=== PATIENT | female | born 1980 | race Caucasian/White ===

== ENCOUNTER 2023-03-18 13:19 | Inpatient (IN) | payer OTHER, MEDICAID, SELFPAY ==
[2023-03-18] VITALS (52 sets, daily range): BP systolic 105–154; BP diastolic 41–73; PULSE 56–787; RESP 11–30; TEMP 36.1–37.3; O2SAT 98–100; BMI 44.8
--- NOTE | 2023-03-18 | PATH_ITS ---
[facility] Accession Number: [id number] No. of containers..01 Tissue . 01 Material submitted: . endometrium - ENDOMETRIAL CURETTINGS . 01 Diagnosis: Endometrium, Curettage: Secretory endometrium with extensive breakdown. Negative for neoplasia. MRV 03/27/2023 1535 Local . 01 Electronically signed: . Kellie López MD, Pathologist NPI- [id number] . 01 Gross description: . ENDOMETRIAL CURETTINGS: Received in formalin are minute fragments of mucoid and hemorrhagic material measuring 5.0 x 4.0 x 0.3 cm in aggregate. Submitted in toto in 2 cassettes. /AAY 03/20/2023 0148 Local . 01 Pathologist provided ICD-10: N94.9 . 01 CPT . 041005 Specimen Comment: A courtesy copy of this report has been sent to [facility] Performed at: 01 [facility] [address] [place] [address], [place], [place] [id number] MD Eusebio Delgado MD Phone: [phone]
--- NOTE | 2023-03-18 14:06 | DI.CT.S_ITS ---
PROCEDURE: CT ABDOMEN PELVIS W CON INDICATIONS: Abdominal pain radiating from right lower back TECHNIQUE: After the administration of intravenous contrast, axial sections acquired from the lung bases to the pubic symphysis. Coronal and sagittal reformats were performed. For radiation dose reduction, the following was used: automated exposure control, adjustment of mA and/or kV according to patient size. COMPARISON: None. FINDINGS: Lower thorax: The lung bases are clear. Heart size normal. No hiatal hernia. Liver: Normal in size and attenuation. No contour deformity present. Biliary system: Cholecystectomy. No intra or extrahepatic bile duct dilation. Pancreas: Unremarkable without mass or inflammation evident. Spleen: The spleen is enlarged at 14 cm. No intrinsic mass lesion. Adrenals: Normal morphology and density. Reproductive system: Uterus is enlarged measuring 15.1 x 11.1 x 11.5 cm, in the endometrial and endocervical canal is distended with heterogenous fluid, likely hemorrhage . Bilateral fallopian tube occlusion devices noted. No free fluid in the pelvis. Urinary system: Normal renal size and attenuation. No renal calculi, hydronephrosis, or solid mass present. Urinary bladder unremarkable. Gastrointestinal system: The bowel is unremarkable without evidence of bowel obstruction or inflammation. The stomach appears unremarkable. Appendix: No findings to suggest acute appendicitis. Peritoneal spaces: No mesenteric or retroperitoneal adenopathy. No free air. No free fluid. Vasculature: The IVC, aorta and iliac vasculature are unremarkable. Abdominal wall: Abdominal wall intact without evidence of ventral or inguinal hernias. Musculoskeletal: Normal bone mineralization. No acute fractures. IMPRESSION: 1. Uterine enlargement and large volume endometrial and endocervical heterogenous fluid, possibly hemorrhage. Consider ultrasound correlation to assess vascularity and [employer] consult. 2. Splenomegaly, 14 cm Approved by: Ankush Mendez M.D. on 03/18/2023 at 14:19
--- NOTE | 2023-03-18 14:10 | ED.ABDPAIN ---
HPI - Abdominal Pain <BETTY Browne - Last Filed: 03/18/23 16:31> General Chief Complaint: Abdominal Pain Stated Complaint: abd pain/lower back to the front Time Seen by Provider: 03/18/23 13:45 Source: patient Mode of arrival: Ambulatory History of Present Illness HPI narrative: 42-year-old female, former smoker with a history of epiploic appendagitis, presents to the emergency department with worsening right lower back pain radiating to abdomen, upper abdominal pain with nausea, vomiting and diarrhea (loose) x2 days. Patient denies any blood or unusual consistency of vomitus or stool. Patient is currently on her menses. Patient states that she had similar symptoms last month during her menstrual cycle, that lasted for 5 days. Patient states that she is been having these worsening symptoms during her menses over the last 4 months. Patient is concerned because this pain feels different from previous months. History of cholecystectomy and BTL. Patient did attempt to eat at 7:00 a.m. and 10:00 a.m. today, but vomited everything up. Sipping water caused her to be nauseous as well. Patient states that the only position she is been in that alleviates her pain is in a high Martinez's position. Related Data Home Medications Medication Instructions Recorded Confirmed acetaminophen 500 mg tablet 1,000 mg PO Q6H PRN 07/18/22 07/18/22 (Tylenol Extra Strength) Allergies Allergy/AdvReac Type Severity Reaction Status Date / Time beeswax Allergy Intermediate Affects Verified 03/18/23 13:33 Breathing grapefruit Allergy Intermediate Rash Verified 03/18/23 13:33 honey Allergy Intermediate Affects Verified 03/18/23 13:33 Breathing pineapple Allergy Intermediate Rash Verified 03/18/23 13:33 Review of Systems <BETTY Browne - Last Filed: 03/18/23 16:31> Review of Systems Narrative: Narrative: See HPI. GENERAL: Denies chills, fatigue, fever, sweats. HEENT: Denies sinus pain, ear pain, sore throat, difficulty swallowing, dizziness. RESPIRATORY: Denies dyspnea, cough, wheezing, sputum. CARDIOVASCULAR: Denies chest pain, palpitations, edema. GASTROINTESTINAL: Denies constipation. Endorses nausea, vomiting, diarrhea and abdominal pain. : Denies dysuria, incontinence, hematuria, urinary retention. Endorses urinary frequency and right lower back pain. MSK: Denies weakness, joint pain, or bony pain. SKIN: Denies rash, skin lesions, or pruritis. NEUROLOGIC: Denies weakness, dizziness, headache, numbness, confusion. PSYCHIATRIC: No concerning psychosocial issues. Patient History <BETTY Browne - Last Filed: 03/18/23 16:31> Medical History Vision disorder Acne Depression Anxiety Restless leg syndrome Migraines Headache Shoulder pain Foot pain Chronic back pain Ankle pain Chicken pox Blindness Painful menstrual periods Heavy menstrual period Epiploic appendagitis (~2016) Tetrahydrocannabinol (THC) use disorder, mild, abuse MADDI (generalized anxiety disorder) Vision loss Cataract Surgical History Anesthesia History of section History of cholecystectomy (~2006) Family History Father Cataracts, bilateral Mother Glaucoma Grandfather Cancer Social History household members: friend(s) Smoking Status: Former smoker Tobacco: How many years used: 13 alcohol intake: current substance use type: marijuana (current, anxiety ) Smoking Status: Former smoker alcohol intake frequency: holidays/special occasions only Substance Use Type: marijuana Exam <BETTY Browne - Last Filed: 03/18/23 16:31> Narrative Exam Narrative: Exam Narrative: GENERAL: This is a well-nourished, well-developed patient, in mild distress. HEAD: Atraumatic. Normocephalic. EYES: Pupils equal round and reactive. Extraocular motions intact. No scleral icterus, injection or drainage. ENT: Nose without bleeding, purulent drainage. Throat without erythema, tonsillar hypertrophy or exudate. Uvula midline. Airway patent. TMs and canals clear. No sinus tenderness. NECK: Trachea midline. No JVD or lymphadenopathy. Nontender. CARDIOVASCULAR: Regular rate and rhythm with systolic murmur, peripheral pulses intact, cap refill <2 sec. RESPIRATORY: Breath sounds equal and clear bilaterally. No wheezes, rales, or rhonchi. No cough. No increased respiratory effort. No accessory muscle use. GASTROINTESTINAL: Abdomen soft, with generalized discomfort (worse in upper quadrants), nondistended without guarding or rebound. No suprapubic pain. MSK: Moves all extremities. Normal range of motion, no clubbing or edema. Neurovascularly intact. NEURO: A&O x 3. SKIN: Warm, dry, no rashes or lesions noted. Initial Vital Signs Initial Vital Signs: Vital Signs Temperature 97.6 F 03/18/23 13:24 Pulse Rate 82 03/18/23 13:24 Respiratory Rate 20 03/18/23 13:24 Blood Pressure 151/67 H 03/18/23 13:24 Pulse Oximetry 100 03/18/23 13:24 Oxygen Delivery Method Room Air 03/18/23 13:24 Reviewed <Hallie Guillen DO - Last Filed: 03/18/23 18:17> Initial Vital Signs Initial Vital Signs: Vital Signs Temperature 97.6 F 03/18/23 13:24 Pulse Rate 82 03/18/23 13:24 Respiratory Rate 20 03/18/23 13:24 Blood Pressure 151/67 H 03/18/23 13:24 Pulse Oximetry 100 03/18/23 13:24 Oxygen Delivery Method Room Air 03/18/23 13:24 Course <BETTY Browne - Last Filed: 03/18/23 16:31> Orders Ordered: ED Orders 03/18/23 13:50 Complete Blood Count AUTO DIFF Stat Comprehensive Metabolic Panel Stat Iron Profile (w/ % Saturation) Stat Lipase Stat 03/18/23 14:06 CT abdomen pelvis w con Stat 03/18/23 14:10 Urinalysis and Microscopic Stat Urine Culture Stat 03/18/23 14:30 Covid-19 + FLU A/B + RSV - PCR Stat 03/18/23 14:50 Ammonia (NH3) Stat 03/18/23 14:56 Packed Cells Stat Type and Screen Stat Fentanyl (Fentanyl 100 Mcg/2 Ml Inj) 0 mcg IV Q5MIN PRN PRN Reason: Pain, Severe (7-10) Last Admin: 03/18/23 17:48 Dose: 25 mcg Documented By: CG Hydromorphone HCl (Hydromorphone 1 Mg Inj) 0 mg IV Q5MIN PRN PRN Reason: Pain, Mild (1-3) Hydroxyzine HCl (Hydroxyzine 50 Mg/Ml Inj) 25 mg IM NOW PRN PRN Reason: Pain, Mild (1-3) Lactated Ringer's (Lactated Ringers) 1,000 mls @ 42 mls/hr IV CONT BYRON Last Infusion: 03/18/23 17:53 Dose: Infused Documented By: Admin: 03/18/23 17:53 Dose: 42 mls/hr Documented By: MARY Cefazolin Sodium/Dextrose (Ancef) 100 mls @ 200 mls/hr IV NOW ONE Stop: 03/18/23 17:38 Last Infusion: 03/18/23 17:02 Dose: Infused Documented By: Admin: 03/18/23 16:45 Dose: 200 mls/hr Documented By: MICHAEL Lactated Ringer's (Lactated Ringers) 1,000 mls @ 120 mls/hr IV CONT BYRON Ondansetron HCl (Ondansetron 4 Mg/2 Ml Inj) 4 mg IV NOW PRN PRN Reason: Nausea And Vomiting Last Admin: 03/18/23 17:48 Dose: 4 mg Documented By: MARY Discontinued Medications Sodium Chloride (Normal Saline 0.9%) 1,000 mls @ 1,000 mls/hr IV BOLUS ONE Stop: 03/18/23 15:02 Last Infusion: 03/18/23 15:57 Dose: Infused Documented By: Admin: 03/18/23 14:32 Dose: 1,000 mls/hr Documented By: SARAI Tranexamic Acid 1,000 mg/ (Sodium Chloride) 100 mls @ 200 mls/hr IV NOW ONE Stop: 03/18/23 16:37 Last Admin: 03/18/23 16:36 Dose: Not Given Documented By: SARAI Ketorolac Tromethamine (Ketorolac 30 Mg/Ml Vial) 30 mg IV NOW ONE Stop: 03/18/23 14:10 Last Admin: 03/18/23 14:26 Dose: 30 mg Documented By: SARAI Ondansetron HCl (Ondansetron 4 Mg/2 Ml Inj) 4 mg IV NOW ONE Stop: 03/18/23 14:04 Last Admin: 03/18/23 14:26 Dose: 4 mg Documented By: SARAI Consultations Consultation #1: Dr. Shah, OBGYN, was contacted and presented to the bedside for evaluation. Patient will be taking patient to operating room for D&C. Vital Signs Vital signs: Vital Signs - 8 hr 03/18/23 13:24 03/18/23 13:40 03/18/23 13:41 Temperature 97.6 F Pulse Rate 82 79 77 Respiratory Rate 20 Blood Pressure 151/67 H Pulse Oximetry 100 99 100 Oxygen Delivery Method Room Air 03/18/23 13:41 03/18/23 14:00 03/18/23 14:00 Temperature Pulse Rate 87 Respiratory Rate Blood Pressure 151/65 H 141/64 H Pulse Oximetry 99 Oxygen Delivery Method 03/18/23 14:12 03/18/23 14:12 03/18/23 14:30 Temperature Pulse Rate 81 78 Respiratory Rate Blood Pressure 153/67 H Pulse Oximetry 100 99 Oxygen Delivery Method 03/18/23 14:59 03/18/23 14:59 03/18/23 15:00 Temperature Pulse Rate 84 80 Respiratory Rate Blood Pressure 133/58 L Pulse Oximetry 100 100 Oxygen Delivery Method 03/18/23 15:01 03/18/23 15:01 03/18/23 15:05 Temperature Pulse Rate 78 Respiratory Rate Blood Pressure 127/60 126/58 L Pulse Oximetry 100 Oxygen Delivery Method 03/18/23 15:05 03/18/23 15:10 03/18/23 15:10 Temperature Pulse Rate 90 79 Respiratory Rate Blood Pressure 117/57 L Pulse Oximetry 100 100 Oxygen Delivery Method 03/18/23 15:15 03/18/23 15:15 03/18/23 15:21 Temperature Pulse Rate 78 78 Respiratory Rate 16 Blood Pressure 122/57 L Pulse Oximetry 100 100 Oxygen Delivery Method Room Air 03/18/23 15:26 03/18/23 15:26 03/18/23 15:30 Temperature Pulse Rate 82 74 Respiratory Rate Blood Pressure 141/63 H Pulse Oximetry 100 100 Oxygen Delivery Method 03/18/23 15:30 03/18/23 15:35 03/18/23 15:40 Temperature Pulse Rate 73 72 Respiratory Rate Blood Pressure 141/63 H Pulse Oximetry 100 100 Oxygen Delivery Method 03/18/23 15:45 03/18/23 15:47 03/18/23 15:47 Temperature Pulse Rate 74 73 Respiratory Rate Blood Pressure 143/67 H Pulse Oximetry 100 100 Oxygen Delivery Method 03/18/23 15:50 03/18/23 15:55 03/18/23 16:00 Temperature Pulse Rate 81 79 Respiratory Rate Blood Pressure 146/61 H Pulse Oximetry 100 99 Oxygen Delivery Method 03/18/23 16:00 03/18/23 16:05 03/18/23 16:10 Temperature Pulse Rate 78 79 Respiratory Rate Blood Pressure 145/62 H Pulse Oximetry 99 99 Oxygen Delivery Method 03/18/23 16:10 03/18/23 16:12 03/18/23 16:15 Temperature 98.5 F Pulse Rate 74 69 72 Respiratory Rate 16 Blood Pressure 145/62 H Pulse Oximetry 99 99 Oxygen Delivery Method 03/18/23 16:15 03/18/23 16:20 03/18/23 16:20 Temperature Pulse Rate 81 Respiratory Rate Blood Pressure 147/68 H 154/70 H Pulse Oximetry 98 Oxygen Delivery Method 03/18/23 16:24 03/18/23 16:25 03/18/23 16:29 Temperature 97.1 F L Pulse Rate 86 86 Respiratory Rate 16 Blood Pressure 152/68 H 121/59 L Pulse Oximetry 99 Oxygen Delivery Method 03/18/23 16:30 03/18/23 17:04 03/18/23 17:15 Temperature 98.5 F 97 F L 96.9 F L Pulse Rate 68 86 72 Respiratory Rate 16 28 H 30 H Blood Pressure 144/60 H 115/55 L 105/51 L Pulse Oximetry Oxygen Delivery Method <Halile Guillen, - Last Filed: 03/18/23 18:17> Orders Ordered: ED Orders 03/18/23 13:50 Complete Blood Count AUTO DIFF Stat Comprehensive Metabolic Panel Stat Iron Profile (w/ % Saturation) Stat Lipase Stat 03/18/23 14:06 CT abdomen pelvis w con Stat 03/18/23 14:10 Urinalysis and Microscopic Stat Urine Culture Stat 03/18/23 14:30 Covid-19 + FLU A/B + RSV - PCR Stat 03/18/23 14:50 Ammonia (NH3) Stat 03/18/23 14:56 Packed Cells Stat Type and Screen Stat Fentanyl (Fentanyl 100 Mcg/2 Ml Inj) 0 mcg IV Q5MIN PRN PRN Reason: Pain, Severe (7-10) Last Admin: 03/18/23 17:48 Dose: 25 mcg Documented By: CG Hydromorphone HCl (Hydromorphone 1 Mg Inj) 0 mg IV Q5MIN PRN PRN Reason: Pain, Mild (1-3) Hydroxyzine HCl (Hydroxyzine 50 Mg/Ml Inj) 25 mg IM NOW PRN PRN Reason: Pain, Mild (1-3) Lactated Ringer's (Lactated Ringers) 1,000 mls @ 42 mls/hr IV CONT BYRON Last Infusion: 03/18/23 17:53 Dose: Infused Documented By: Admin: 03/18/23 17:53 Dose: 42 mls/hr Documented By: MARY Cefazolin Sodium/Dextrose (Ancef) 100 mls @ 200 mls/hr IV NOW ONE Stop: 03/18/23 17:38 Last Infusion: 03/18/23 17:02 Dose: Infused Documented By: Admin: 03/18/23 16:45 Dose: 200 mls/hr Documented By: MICHAEL Lactated Ringer's (Lactated Ringers) 1,000 mls @ 120 mls/hr IV CONT BYRON Ondansetron HCl (Ondansetron 4 Mg/2 Ml Inj) 4 mg IV NOW PRN PRN Reason: Nausea And Vomiting Last Admin: 03/18/23 17:48 Dose: 4 mg Documented By: MARY Discontinued Medications Sodium Chloride (Normal Saline 0.9%) 1,000 mls @ 1,000 mls/hr IV BOLUS ONE Stop: 03/18/23 15:02 Last Infusion: 03/18/23 15:57 Dose: Infused Documented By: Admin: 03/18/23 14:32 Dose: 1,000 mls/hr Documented By: SARAI Tranexamic Acid 1,000 mg/ (Sodium Chloride) 100 mls @ 200 mls/hr IV NOW ONE Stop: 03/18/23 16:37 Last Admin: 03/18/23 16:36 Dose: Not Given Documented By: SARAI Ketorolac Tromethamine (Ketorolac 30 Mg/Ml Vial) 30 mg IV NOW ONE Stop: 03/18/23 14:10 Last Admin: 03/18/23 14:26 Dose: 30 mg Documented By: SARAI Ondansetron HCl (Ondansetron 4 Mg/2 Ml Inj) 4 mg IV NOW ONE Stop: 03/18/23 14:04 Last Admin: 03/18/23 14:26 Dose: 4 mg Documented By: SARAI Vital Signs Vital signs: Vital Signs - 8 hr 03/18/23 13:24 03/18/23 13:40 03/18/23 13:41 Temperature 97.6 F Pulse Rate 82 79 77 Respiratory Rate 20 Blood Pressure 151/67 H Pulse Oximetry 100 99 100 Oxygen Delivery Method Room Air 03/18/23 13:41 03/18/23 14:00 03/18/23 14:00 Temperature Pulse Rate 87 Respiratory Rate Blood Pressure 151/65 H 141/64 H Pulse Oximetry 99 Oxygen Delivery Method 03/18/23 14:12 03/18/23 14:12 03/18/23 14:30 Temperature Pulse Rate 81 78 Respiratory Rate Blood Pressure 153/67 H Pulse Oximetry 100 99 Oxygen Delivery Method 03/18/23 14:59 03/18/23 14:59 03/18/23 15:00 Temperature Pulse Rate 84 80 Respiratory Rate Blood Pressure 133/58 L Pulse Oximetry 100 100 Oxygen Delivery Method 03/18/23 15:01 03/18/23 15:01 03/18/23 15:05 Temperature Pulse Rate 78 Respiratory Rate Blood Pressure 127/60 126/58 L Pulse Oximetry 100 Oxygen Delivery Method 03/18/23 15:05 03/18/23 15:10 03/18/23 15:10 Temperature Pulse Rate 90 79 Respiratory Rate Blood Pressure 117/57 L Pulse Oximetry 100 100 Oxygen Delivery Method 03/18/23 15:15 03/18/23 15:15 03/18/23 15:21 Temperature Pulse Rate 78 78 Respiratory Rate 16 Blood Pressure 122/57 L Pulse Oximetry 100 100 Oxygen Delivery Method Room Air 03/18/23 15:26 03/18/23 15:26 03/18/23 15:30 Temperature Pulse Rate 82 74 Respiratory Rate Blood Pressure 141/63 H Pulse Oximetry 100 100 Oxygen Delivery Method 03/18/23 15:30 03/18/23 15:35 03/18/23 15:40 Temperature Pulse Rate 73 72 Respiratory Rate Blood Pressure 141/63 H Pulse Oximetry 100 100 Oxygen Delivery Method 03/18/23 15:45 03/18/23 15:47 03/18/23 15:47 Temperature Pulse Rate 74 73 Respiratory Rate Blood Pressure 143/67 H Pulse Oximetry 100 100 Oxygen Delivery Method 03/18/23 15:50 03/18/23 15:55 03/18/23 16:00 Temperature Pulse Rate 81 79 Respiratory Rate Blood Pressure 146/61 H Pulse Oximetry 100 99 Oxygen Delivery Method 03/18/23 16:00 03/18/23 16:05 03/18/23 16:10 Temperature Pulse Rate 78 79 Respiratory Rate Blood Pressure 145/62 H Pulse Oximetry 99 99 Oxygen Delivery Method 03/18/23 16:10 03/18/23 16:12 03/18/23 16:15 Temperature 98.5 F Pulse Rate 74 69 72 Respiratory Rate 16 Blood Pressure 145/62 H Pulse Oximetry 99 99 Oxygen Delivery Method 03/18/23 16:15 03/18/23 16:20 03/18/23 16:20 Temperature Pulse Rate 81 Respiratory Rate Blood Pressure 147/68 H 154/70 H Pulse Oximetry 98 Oxygen Delivery Method 03/18/23 16:24 03/18/23 16:25 03/18/23 16:29 Temperature 97.1 F L Pulse Rate 86 86 Respiratory Rate 16 Blood Pressure 152/68 H 121/59 L Pulse Oximetry 99 Oxygen Delivery Method 03/18/23 16:30 03/18/23 17:04 03/18/23 17:15 Temperature 98.5 F 97 F L 96.9 F L Pulse Rate 68 86 72 Respiratory Rate 16 28 H 30 H Blood Pressure 144/60 H 115/55 L 105/51 L Pulse Oximetry Oxygen Delivery Method MDM - Abdominal Pain <BETTY Browne - Last Filed: 03/18/23 16:31> Differential Diagnosis Differential diagnosis: Likely abdominal pain, acute appendicitis, calculus of kidney, endometriosis, small bowel obstruction and other (Epiploic appendagitis, uti, internal bleeding) Lab Data 03/18/23 17:40 03/18/23 13:50 Labs: Lab Results 03/18/23 03/18/23 03/18/23 Range/Units 13:50 14:10 14:30 WBC 7.4 (4.5-11.0) X10^3/uL RBC 2.77 L (4.0-5.2) X10^6/uL Hgb 4.2 L* (12.0-16.0) g/dL Hct 15.8 L* (36-46) % MCV 57.1 L (80-100) fL MCH 15.3 L (26-34) PG MCHC 26.8 L (30-36) % RDW 23.3 H (11.6-14.8) % Plt Count 256 (150-400) X10^3/uL Neut % (Auto) 82.7 H (50-75) % Lymph % (Auto) 11.3 L (25-40) % [place] % (Auto) 5.0 (3-14) % Eos % (Auto) 0.5 L (2-4) % Baso % (Auto) 0.5 (0-2) % Neut # (Auto) 6100 (0487-0785) /uL Lymph # (Auto) 800 L (1333-7114) /uL [place] # (Auto) 400 (0-900) /uL Eos # (Auto) 0 (0-450) /uL Baso # (Auto) 0 (0-100) /uL RBC Morphology See below Polychromasia 1+ H Hypochromasia 2+ H Anisocytosis 3+ H Microcytosis 3+ H Tear Drop Cells 1+ H Ovalocytes 1+ H Schistocytes 1+ H Sodium 139 (137-145) mmol/L Potassium 3.4 (3.4-5.1) mmol/L Chloride 108 H (98-107) mmol/L Carbon Dioxide 23 (22-32) mmol/L BUN 7 (7-17) mg/dL Creatinine 0.73 (0.52-1.04) mg/dL Estimated GFR > 60 (>60) mL/min BUN/Creatinine Ratio 9.6 (6-22) Glucose 97 (70-100) mg/dL Calcium 9.3 (8.4-10.2) mg/dL Iron 18 L (37-170) ug/dL TIBC 407 (265-497) ug/dL % Saturation 4 L (15-50) % Transferrin 384 H (206-381) mg/dL Total Bilirubin 0.5 (0.2-1.3) mg/dL AST 20 (14-36) IU/L ALT 13 (<35) IU/L Alkaline Phosphatase 63 (38-126) U/L Ammonia (9-30) umol/L Total Protein 7.0 (6.3-8.2) g/dL Albumin 4.1 (3.5-5.0) g/dL Globulin 2.9 (1.7-4.1) g/dL Albumin/Globulin Ratio 1.4 (1.0-2.8) Lipase 18 L (23-300) U/L Urine Color Yellow Urine Appearance Sl cloudy Urine pH 6.0 (4.5-8.0) Ur Specific [place] 1.020 (1.000-1.035) Urine Protein Trace H (Negative) Urine Glucose (UA) Negative (Negative) g/dL Urine Ketones Negative (NEGATIVE) Urine Occult Blood 3+ H (Negative) Urine Nitrate Negative (Negative) Urine Bilirubin Negative (NEGATIVE) Urine Urobilinogen 0.2 (0.2) E.U./dL Ur Leukocyte Esterase 1+ H (NEGATIVE) Urine RBC >100/hpf H (0-5/HPF) Urine WBC 5-10/hpf H (0-5/HPF) Ur Squamous Epith Cells 0-1 /hpf (0-5/HPF) Urine Bacteria Many (>30) H (None) Ur Culture Indicated? Specimen cultured SARS-CoV-2 (PCR) Negative (Negative) Influenza A (RT-PCR) Flu a negative (NEGATIVE) Influenza B (RT-PCR) Flu b negative (NEGATIVE) RSV (PCR) Negative (Negative) Blood Type Antibody Screen Crossmatch 03/18/23 03/18/23 Range/Units 14:50 14:56 WBC (4.5-11.0) X10^3/uL RBC (4.0-5.2) X10^6/uL Hgb (12.0-16.0) g/dL Hct (36-46) % MCV (80-100) fL MCH (26-34) PG MCHC (30-36) % RDW (11.6-14.8) % Plt Count (150-400) X10^3/uL Neut % (Auto) (50-75) % Lymph % (Auto) (25-40) % [place] % (Auto) (3-14) % Eos % (Auto) (2-4) % Baso % (Auto) (0-2) % Neut # (Auto) (8121-2386) /uL Lymph # (Auto) (8541-5179) /uL [place] # (Auto) (0-900) /uL Eos # (Auto) (0-450) /uL Baso # (Auto) (0-100) /uL RBC Morphology Polychromasia Hypochromasia Anisocytosis Microcytosis Tear Drop Cells Ovalocytes Schistocytes Sodium (137-145) mmol/L Potassium (3.4-5.1) mmol/L Chloride (98-107) mmol/L Carbon Dioxide (22-32) mmol/L BUN (7-17) mg/dL Creatinine (0.52-1.04) mg/dL Estimated GFR (>60) mL/min BUN/Creatinine Ratio (6-22) Glucose (70-100) mg/dL Calcium (8.4-10.2) mg/dL Iron (37-170) ug/dL TIBC (265-497) ug/dL % Saturation (15-50) % Transferrin (206-381) mg/dL Total Bilirubin (0.2-1.3) mg/dL AST (14-36) IU/L ALT (<35) IU/L Alkaline Phosphatase (38-126) U/L Ammonia < 9 L (9-30) umol/L Total Protein (6.3-8.2) g/dL Albumin (3.5-5.0) g/dL Globulin (1.7-4.1) g/dL Albumin/Globulin Ratio (1.0-2.8) Lipase (23-300) U/L Urine Color Urine Appearance Urine pH (4.5-8.0) Ur Specific [place] (1.000-1.035) Urine Protein (Negative) Urine Glucose (UA) (Negative) g/dL Urine Ketones (NEGATIVE) Urine Occult Blood (Negative) Urine Nitrate (Negative) Urine Bilirubin (NEGATIVE) Urine Urobilinogen (0.2) E.U./dL Ur Leukocyte Esterase (NEGATIVE) Urine RBC (0-5/HPF) Urine WBC (0-5/HPF) Ur Squamous Epith Cells (0-5/HPF) Urine Bacteria (None) Ur Culture Indicated? SARS-CoV-2 (PCR) (Negative) Influenza A (RT-PCR) (NEGATIVE) Influenza B (RT-PCR) (NEGATIVE) RSV (PCR) (Negative) Blood Type O Negative Antibody Screen Negative Crossmatch See Detail Point of care testing: Point of Care Testing Test Results Negative Urine Dip Bedside Urine Glucose Negative Bedside Urine Bilirubin - Negative Bedside Urine Ketone - Negative Urine Specific [place] 1.015 Bedside Urine Occult Blood +++ Bedside Urine pH 6.0 Bedside Urine Protein +/- 15 Bedside Urine Urobilinogen - Negative Bedside Urine Nitrite - Negative Bedside Urine Leukocytes ++ [address] scan - abdomen/pelvis: Radiologist's Impression: [address] [address] [address] Scan Report Signed Patient: Nikki Shelton MR#: [id number] : 1980 Acct:[id number] Age/Sex: 42 / F Date of Service: 03/18/23 Loc: ED Accession Number: [id number] Procedure: CT abdomen pelvis w con Ordering Provider: Ventura Rooney PROCEDURE: CT ABDOMEN PELVIS W CON INDICATIONS: Abdominal pain radiating from right lower back TECHNIQUE: After the administration of intravenous contrast, axial sections acquired from the lung bases to the pubic symphysis. Coronal and sagittal reformats were performed. For radiation dose reduction, the following was used: automated exposure control, adjustment of mA and/or kV according to patient size. COMPARISON: None. FINDINGS: Lower thorax: The lung bases are clear. Heart size normal. No hiatal hernia. Liver: Normal in size and attenuation. No contour deformity present. Biliary system: Cholecystectomy. No intra or extrahepatic bile duct dilation. Pancreas: Unremarkable without mass or inflammation evident. Spleen: The spleen is enlarged at 14 cm. No intrinsic mass lesion. Adrenals: Normal morphology and density. Reproductive system: Uterus is enlarged measuring 15.1 x 11.1 x 11.5 cm, in the endometrial and endocervical canal is distended with heterogenous fluid, likely hemorrhage . Bilateral fallopian tube occlusion devices noted. No free fluid in the pelvis. Urinary system: Normal renal size and attenuation. No renal calculi, hydronephrosis, or solid mass present. Urinary bladder unremarkable. Gastrointestinal system: The bowel is unremarkable without evidence of bowel obstruction or inflammation. The stomach appears unremarkable. Appendix: No findings to suggest acute appendicitis. Peritoneal spaces: No mesenteric or retroperitoneal adenopathy. No free air. No free fluid. Vasculature: The IVC, aorta and iliac vasculature are unremarkable. Abdominal wall: Abdominal wall intact without evidence of ventral or inguinal hernias. Musculoskeletal: Normal bone mineralization. No acute fractures. IMPRESSION: 1. Uterine enlargement and large volume endometrial and endocervical heterogenous fluid, possibly hemorrhage. Consider ultrasound correlation to assess vascularity and [employer]ANT PHYSIOLOGIST consult. 2. Splenomegaly, 14 cm Approved by: Ankush Mendez M.D. on 03/18/2023 at 14:19 MDM Narrative Medical decision making narrative: 42-year-old female, with history of epiploic appendagitis, presenting to the emergency department with N/V/D and abdominal pain. Patient currently on day #2 of menses. Patient was given IV fluids, Toradol and Zofran. HCG was negative. Viral panel was negative. Urine sample was consistent with a UTI, positive blood and leuks. H/H is concerning at 4.2/15.8. All other labs are not overly concerning. 2 units of PRBCs infusion started. CT reveals suspected hemorrhage into the uterine cavity. PAWN BROKER, Dr. Kennedy, contacted and will be taking patient to the operating room for a D&C. <Hallie Guillen, DO - Last Filed: 03/18/23 18:17> Lab Data Labs: Lab Results 03/18/23 03/18/23 03/18/23 Range/Units 13:50 14:10 14:30 WBC 7.4 (4.5-11.0) X10^3/uL RBC 2.77 L (4.0-5.2) X10^6/uL Hgb 4.2 L* (12.0-16.0) g/dL Hct 15.8 L* (36-46) % MCV 57.1 L (80-100) fL MCH 15.3 L (26-34) PG MCHC 26.8 L (30-36) % RDW 23.3 H (11.6-14.8) % Plt Count 256 (150-400) X10^3/uL Neut % (Auto) 82.7 H (50-75) % Lymph % (Auto) 11.3 L (25-40) % [place] % (Auto) 5.0 (3-14) % Eos % (Auto) 0.5 L (2-4) % Baso % (Auto) 0.5 (0-2) % Neut # (Auto) 6100 (3528-0794) /uL Lymph # (Auto) 800 L (7362-6846) /uL [place] # (Auto) 400 (0-900) /uL Eos # (Auto) 0 (0-450) /uL Baso # (Auto) 0 (0-100) /uL RBC Morphology See below Polychromasia 1+ H Hypochromasia 2+ H Anisocytosis 3+ H Microcytosis 3+ H Tear Drop Cells 1+ H Ovalocytes 1+ H Schistocytes 1+ H Sodium 139 (137-145) mmol/L Potassium 3.4 (3.4-5.1) mmol/L Chloride 108 H (98-107) mmol/L Carbon Dioxide 23 (22-32) mmol/L BUN 7 (7-17) mg/dL Creatinine 0.73 (0.52-1.04) mg/dL Estimated GFR > 60 (>60) mL/min BUN/Creatinine Ratio 9.6 (6-22) Glucose 97 (70-100) mg/dL Calcium 9.3 (8.4-10.2) mg/dL Iron 18 L (37-170) ug/dL TIBC 407 (265-497) ug/dL % Saturation 4 L (15-50) % Transferrin 384 H (206-381) mg/dL Total Bilirubin 0.5 (0.2-1.3) mg/dL AST 20 (14-36) IU/L ALT 13 (<35) IU/L Alkaline Phosphatase 63 (38-126) U/L Ammonia (9-30) umol/L Total Protein 7.0 (6.3-8.2) g/dL Albumin 4.1 (3.5-5.0) g/dL Globulin 2.9 (1.7-4.1) g/dL Albumin/Globulin Ratio 1.4 (1.0-2.8) Lipase 18 L (23-300) U/L Urine Color Yellow Urine Appearance Sl cloudy Urine pH 6.0 (4.5-8.0) Ur Specific [place] 1.020 (1.000-1.035) Urine Protein Trace H (Negative) Urine Glucose (UA) Negative (Negative) g/dL Urine Ketones Negative (NEGATIVE) Urine Occult Blood 3+ H (Negative) Urine Nitrate Negative (Negative) Urine Bilirubin Negative (NEGATIVE) Urine Urobilinogen 0.2 (0.2) E.U./dL Ur Leukocyte Esterase 1+ H (NEGATIVE) Urine RBC >100/hpf H (0-5/HPF) Urine WBC 5-10/hpf H (0-5/HPF) Ur Squamous Epith Cells 0-1 /hpf (0-5/HPF) Urine Bacteria Many (>30) H (None) Ur Culture Indicated? Specimen cultured SARS-CoV-2 (PCR) Negative (Negative) Influenza A (RT-PCR) Flu a negative (NEGATIVE) Influenza B (RT-PCR) Flu b negative (NEGATIVE) RSV (PCR) Negative (Negative) Blood Type Antibody Screen Crossmatch 03/18/23 03/18/23 Range/Units 14:50 14:56 WBC (4.5-11.0) X10^3/uL RBC (4.0-5.2) X10^6/uL Hgb (12.0-16.0) g/dL Hct (36-46) % MCV (80-100) fL MCH (26-34) PG MCHC (30-36) % RDW (11.6-14.8) % Plt Count (150-400) X10^3/uL Neut % (Auto) (50-75) % Lymph % (Auto) (25-40) % [place] % (Auto) (3-14) % Eos % (Auto) (2-4) % Baso % (Auto) (0-2) % Neut # (Auto) (3203-3995) /uL Lymph # (Auto) (5477-9630) /uL [place] # (Auto) (0-900) /uL Eos # (Auto) (0-450) /uL Baso # (Auto) (0-100) /uL RBC Morphology Polychromasia Hypochromasia Anisocytosis Microcytosis Tear Drop Cells Ovalocytes Schistocytes Sodium (137-145) mmol/L Potassium (3.4-5.1) mmol/L Chloride (98-107) mmol/L Carbon Dioxide (22-32) mmol/L BUN (7-17) mg/dL Creatinine (0.52-1.04) mg/dL Estimated GFR (>60) mL/min BUN/Creatinine Ratio (6-22) Glucose (70-100) mg/dL Calcium (8.4-10.2) mg/dL Iron (37-170) ug/dL TIBC (265-497) ug/dL % Saturation (15-50) % Transferrin (206-381) mg/dL Total Bilirubin (0.2-1.3) mg/dL AST (14-36) IU/L ALT (<35) IU/L Alkaline Phosphatase (38-126) U/L Ammonia < 9 L (9-30) umol/L Total Protein (6.3-8.2) g/dL Albumin (3.5-5.0) g/dL Globulin (1.7-4.1) g/dL Albumin/Globulin Ratio (1.0-2.8) Lipase (23-300) U/L Urine Color Urine Appearance Urine pH (4.5-8.0) Ur Specific [place] (1.000-1.035) Urine Protein (Negative) Urine Glucose (UA) (Negative) g/dL Urine Ketones (NEGATIVE) Urine Occult Blood (Negative) Urine Nitrate (Negative) Urine Bilirubin (NEGATIVE) Urine Urobilinogen (0.2) E.U./dL Ur Leukocyte Esterase (NEGATIVE) Urine RBC (0-5/HPF) Urine WBC (0-5/HPF) Ur Squamous Epith Cells (0-5/HPF) Urine Bacteria (None) Ur Culture Indicated? SARS-CoV-2 (PCR) (Negative) Influenza A (RT-PCR) (NEGATIVE) Influenza B (RT-PCR) (NEGATIVE) RSV (PCR) (Negative) Blood Type O Negative Antibody Screen Negative Crossmatch See Detail Point of care testing: Point of Care Testing Test Results Negative Urine Dip Bedside Urine Glucose Negative Bedside Urine Bilirubin - Negative Bedside Urine Ketone - Negative Urine Specific [place] 1.015 Bedside Urine Occult Blood +++ Bedside Urine pH 6.0 Bedside Urine Protein +/- 15 Bedside Urine Urobilinogen - Negative Bedside Urine Nitrite - Negative Bedside Urine Leukocytes ++ 125 Esterase Discharge Plan Departure Patient Disposition: Admitted As Inpatient Clinical Impression: Active internal bleeding Admit Date/Time: 03/18/23 17:17 Admit Provider: Bharat Shah ED Sign-out <Hallie Guillen DO - Last Filed: 03/18/23 18:17> Cosign ED Attending Td Attestation: I was immediately available in the department for consultation. Documentation has been reviewed. Dr. Shah in the ED discussed giving TXA it was ordered but not given patient quickly went to the OR. Number tachycardic or hypotensive but quite anemic.
[2023-03-18] MEDS: KETOROLAC 30 MG/ML VIAL IV (14:26)
[2023-03-18] MEDS: ONDANSETRON 4 MG/2 ML INJ IV ×2 (14:26→17:48)
[2023-03-18 14:29] LABS: Alanine Aminotransferase 13 IU/L (<35); Albumin 4.1 g/dL (3.5-5.0); Albumin Globulin Ratio 1.4 (1.0-2.8); Alkaline Phosphatase 63 U/L (38-126); Aspartate Aminotransferase 20 IU/L (14-36); BUN Creatinine Ratio 9.6 (6-22); Bilirubin Total 0.5 mg/dL (0.2-1.3); Blood Urea Nitrogen 7 mg/dL (7-17); Calcium 9.3 mg/dL (8.4-10.2); Carbon Dioxide 23 mmol/L (22-32); Chloride 108 mmol/L (98-107); Estimated Glomerular Filt Rate > 60 mL/min (>60); Globulin 2.9 g/dL (1.7-4.1); Glucose 97 mg/dL (70-100); HEMOLYSIS < 15 (0-50); Lipase 18 U/L (23-300); Potassium 3.4 mmol/L (3.4-5.1); Sodium 139 mmol/L (137-145)
[2023-03-18 14:31] LABS: Appearance Urine UA SL CLOUDY; Bilirubin Urine UA NEGATIVE (NEGATIVE); Color Urine UA YELLOW; Glucose Urine UA NEGATIVE (Negative); Ketones Urine UA NEGATIVE (NEGATIVE); Leukocyte Esterase Urine UA 1+ (NEGATIVE); Nitrite Urine UA NEGATIVE (Negative); Occult Blood Urine UA 3+ (Negative); Protein Urine UA TRACE (Negative); Urobilinogen Urine UA 0.2 E.U./dL (0.2)
[2023-03-18] MEDS: SODIUM CHLORIDE 0.9% 1,000 ML 1000 ML IV (14:32)
[2023-03-18 14:40] LABS: RBC Urine >100/HPF (0-5/HPF); WBC Urine 5-10/HPF (0-5/HPF)
[2023-03-18 14:41] LABS: Bacteria Urine Many (>30); Culture Indicated Urine Specimen Cultured; Squamous Epithelial Cell Urine 0-1 /HPF (0-5/HPF)
[2023-03-18 14:48] LABS: Add Manual Diff / Slide Review NO; Basophils Absolute Auto 0 /uL (0-100); Basophils Percent Auto 0.5 % (0-2); Eosinophils Absolute Auto 0 /uL (0-450); Eosinophils Percent Auto 0.5 % (2-4); Lymphocytes Absolute Auto 800 /uL (1100-4500); Lymphocytes Percent Auto 11.3 % (25-40); Mean Corpuscular HGB Conc 26.8 % (30-36); Mean Corpuscular Hemoglobin 15.3 PG (26-34); Mean Corpuscular Volume 57.1 fL (80-100); Monocytes Absolute Auto 400 /uL (0-900); Neutrophils Absolute Auto 6100 /uL (1500-7000); Neutrophils Percent Auto 82.7 % (50-75); Platelet Count 256 X10^3/uL (150-400); Red Blood Cell Count 2.77 X10^6/uL (4.0-5.2); Red Cell Distribution Width 23.3 % (11.6-14.8); White Blood Cell Count 7.4 X10^3/uL (4.5-11.0)
[2023-03-18 14:53] LABS: Hematocrit 15.8 % (36-46); Hemoglobin 4.2 g/dL (12.0-16.0)
[2023-03-18 15:03] LABS: Anisocytosis 3+; Hypochromasia 2+; Microcytosis 3+; Ovalocytes 1+
[2023-03-18 15:04] LABS: Tear Drop Cells 1+
[2023-03-18 15:06] LABS: Polychromasia 1+
[2023-03-18 15:07] LABS: Ammonia (NH3) < 9 umol/L (9-30)
[2023-03-18 15:08] LABS: Schistocytes 1+
[2023-03-18 15:15] LABS: Influenza A - CEPHEID Flu A NEGATIVE (NEGATIVE); Influenza B - CEPHEID Flu B NEGATIVE (NEGATIVE); Respiratory Syncytial Virus Negative (Negative)
[2023-03-18 15:24] LABS: COVID-19 CEPHEID 4-PLEX PCR Negative (Negative)
[2023-03-18 16:24] LABS: HEMOLYSIS < 15 (0-50); Iron 18 ug/dL (37-170)
[2023-03-18 16:35] LABS: Percent Iron Saturation 4 % (15-50); Total Iron Binding Capacity 407 ug/dL (265-497); Transferrin 384 mg/dL (206-381)
--- NOTE | 2023-03-18 16:39 | PC.NURSE ---
Pt left dept at 1632 with Blood Product running at 200ml/hr. Left dept with Melani IMPLEMENT MECHANIC for Stat surgery. OB physician at bedside with IMPLEMENT MECHANIC to transport pt to surgery.
--- NOTE | 2023-03-18 16:44 | PC.NURSE ---
Pt transported from ED to Surgery 15 mins into the blood product transfusion. Pt left @ 1632 with blood products running at 200mls/hr, all vital signs documented in the MAR and TAR. Pt did not receive TXA in dept., to be administered in the surgical OR suite. HAND POLISHER, Melani, arrived to transport pt to surgery. OB physician at bedside in ER with RNs for consent and transport.
[2023-03-18] MEDS: CEFAZOLIN 2 GM/100 ML PREMIX 100 ML IV (16:45)
--- NOTE | 2023-03-18 17:00 | SUR.OPER ---
Lithotomy on padded OR bed, head on pillow, arms secured on padded arm boards at <90 degrees abduction. Legs secured in padded yellow fins stirrups.
[2023-03-18] MEDS: fentaNYL 100 MCG/2 ML INJ IV (17:48)
[2023-03-18] MEDS: LACTATED RINGERS 1,000 ML 42 ML IV (17:53)
[2023-03-18 17:54] LABS: Hematocrit 20.6 % (36-46)
--- NOTE | 2023-03-18 17:55 | SUR.PHASEI ---
Critical results called from lab and relayed to Dr Shah; H/H 6.0 and 20.6; orders to transfuse additional 2 units of PRBCs
--- NOTE | 2023-03-18 18:27 | P.HPOB_ITS ---
History of Present Illness History of Present Illness Reason for admission: vaginal bleeding Narrative: Nikki Shelton is a 42 year old female Patient is a 42-year-old female whose last menstrual period started 2 days ago Chief complaint: Vaginal bleeding History of present illness: Patient states that she started bleeding roughly 2 days ago has been changing pattern hourly basis she spent passes small clots as well as a few large ones. She is also been complaining of some pain and nausea and vomiting with her cramping. She states the pain goes from the back to the front. She states her periods occur on a regular cycle she flows for 3 days she is been having difficulty with heavy periods since the onset of her periods at roughly 10 years of age. She states she was anemic at her 1st delivery. She is not seen an Water Pollution Control Technician for the last 16 years. Patient also states she is been feeling tired and fatigued. CBC in the ER shows a hemoglobin of 4.2 hematocrit of 15.8. Her MCV is 57.11 MCHC is 26.8 iron saturation is 4% iron is 18 PFSH Medical History Vision disorder Acne Depression Anxiety Restless leg syndrome Migraines Headache Shoulder pain Foot pain Chronic back pain Ankle pain Chicken pox Blindness Painful menstrual periods Heavy menstrual period Epiploic appendagitis (~2016) Tetrahydrocannabinol (THC) use disorder, mild, abuse MADDI (generalized anxiety disorder) Vision loss Cataract Surgical History Anesthesia History of section History of cholecystectomy (~2006) Family History Father Cataracts, bilateral Mother Glaucoma Grandfather Cancer Social History household members: friend(s) Smoking Status: Former smoker Tobacco: How many years used: 13 alcohol intake: current substance use type: marijuana (current, anxiety ) Meds Home Medications and Allergies Home Medications Medication Instructions Recorded Confirmed Type acetaminophen 500 mg tablet 1,000 mg PO Q6H PRN Pain (Scale 07/18/22 03/18/23 History (Tylenol Extra Strength) Score 1-3) Allergies Allergy/AdvReac Type Severity Reaction Status Date / Time beeswax Allergy Intermediate Affects Verified 03/18/23 13:33 Breathing grapefruit Allergy Intermediate Rash Verified 03/18/23 13:33 honey Allergy Intermediate Affects Verified 03/18/23 13:33 Breathing pineapple Allergy Intermediate Rash Verified 03/18/23 13:33 Exam Vital Signs (past 8 hours): - 03/18/23 13:24 03/18/23 13:40 03/18/23 13:41 Temperature 97.6 F Pulse Rate 82 79 77 Respiratory Rate 20 Blood Pressure 151/67 H Pulse Oximetry 100 99 100 Oxygen Delivery Method Room Air 03/18/23 13:41 03/18/23 14:00 03/18/23 14:00 Temperature Pulse Rate 87 Respiratory Rate Blood Pressure 151/65 H 141/64 H Pulse Oximetry 99 Oxygen Delivery Method 03/18/23 14:12 03/18/23 14:12 03/18/23 14:30 Temperature Pulse Rate 81 78 Respiratory Rate Blood Pressure 153/67 H Pulse Oximetry 100 99 Oxygen Delivery Method 03/18/23 14:59 03/18/23 14:59 03/18/23 15:00 Temperature Pulse Rate 84 80 Respiratory Rate Blood Pressure 133/58 L Pulse Oximetry 100 100 Oxygen Delivery Method 03/18/23 15:01 03/18/23 15:01 03/18/23 15:05 Temperature Pulse Rate 78 Respiratory Rate Blood Pressure 127/60 126/58 L Pulse Oximetry 100 Oxygen Delivery Method 03/18/23 15:05 03/18/23 15:10 03/18/23 15:10 Temperature Pulse Rate 90 79 Respiratory Rate Blood Pressure 117/57 L Pulse Oximetry 100 100 Oxygen Delivery Method 03/18/23 15:15 03/18/23 15:15 03/18/23 15:21 Temperature Pulse Rate 78 78 Respiratory Rate 16 Blood Pressure 122/57 L Pulse Oximetry 100 100 Oxygen Delivery Method Room Air 03/18/23 15:26 03/18/23 15:26 03/18/23 15:30 Temperature Pulse Rate 82 74 Respiratory Rate Blood Pressure 141/63 H Pulse Oximetry 100 100 Oxygen Delivery Method 03/18/23 15:30 03/18/23 15:35 03/18/23 15:40 Temperature Pulse Rate 73 72 Respiratory Rate Blood Pressure 141/63 H Pulse Oximetry 100 100 Oxygen Delivery Method 03/18/23 15:45 03/18/23 15:47 03/18/23 15:47 Temperature Pulse Rate 74 73 Respiratory Rate Blood Pressure 143/67 H Pulse Oximetry 100 100 Oxygen Delivery Method 03/18/23 15:50 03/18/23 15:55 03/18/23 16:00 Temperature Pulse Rate 81 79 Respiratory Rate Blood Pressure 146/61 H Pulse Oximetry 100 99 Oxygen Delivery Method 03/18/23 16:00 03/18/23 16:05 03/18/23 16:10 Temperature Pulse Rate 78 79 Respiratory Rate Blood Pressure 145/62 H Pulse Oximetry 99 99 Oxygen Delivery Method 03/18/23 16:10 03/18/23 16:12 03/18/23 16:15 Temperature 98.5 F Pulse Rate 74 69 72 Respiratory Rate 16 Blood Pressure 145/62 H Pulse Oximetry 99 99 Oxygen Delivery Method 03/18/23 16:15 03/18/23 16:20 03/18/23 16:20 Temperature Pulse Rate 81 Respiratory Rate Blood Pressure 147/68 H 154/70 H Pulse Oximetry 98 Oxygen Delivery Method 03/18/23 16:24 03/18/23 16:25 03/18/23 16:29 Temperature 97.1 F L Pulse Rate 86 86 Respiratory Rate 16 Blood Pressure 152/68 H 121/59 L Pulse Oximetry 99 Oxygen Delivery Method 03/18/23 16:30 03/18/23 17:04 03/18/23 17:15 Temperature 98.5 F 97 F L 96.9 F L Pulse Rate 68 86 72 Respiratory Rate 16 28 H 30 H Blood Pressure 144/60 H 115/55 L 105/51 L Pulse Oximetry Oxygen Delivery Method 03/18/23 17:35 03/18/23 17:39 03/18/23 17:43 Temperature 97.1 F L Pulse Rate 87 84 787 H Respiratory Rate 11 L 15 11 L Blood Pressure 123/41 L 118/49 L 113/46 L Pulse Oximetry 100 100 100 Oxygen Delivery Method Room Air Room Air Room Air 03/18/23 17:48 03/18/23 17:56 Temperature Pulse Rate 75 71 Respiratory Rate 14 15 Blood Pressure 124/56 L 126/52 L Pulse Oximetry 99 99 Oxygen Delivery Method Room Air Room Air Oxygen Delivery Method Room Air Const General: cooperative and other (Patient appears pale in the face lips as well as fingernail beds) Nutritional Appearance: obese (Moderately obese) Orientation: alert, awake and oriented x3 HENMT Head: normal to inspection Ears: hearing grossly normal bilaterally Face and sinus: normal facial exam Eyes General: appearance normal, both eyes and all related structures (Lens implants noted) Neck Neck: normal visual inspection Chest Chest: normal inspection of the chest Resp Effort & Inspection: normal respiratory effort Auscultation: clear to auscultation bilaterally Cardio Palpation: normal PMI Rate: regular rate Rhythm: regular rhythm Heart Sounds: S1 normal and S2 normal GI Inspection: normal to inspection Palpation: soft and tender (Tender in the subumbilical area uterus is palpated tender to palpation) Percussion: normal to percussion Speculum Exam - Vagina: normal appearance of the vagina Speculum Exam - Cervix: normal appearance of the cervix (Cervix is that of a nulliparous) Bimanual Exam- Vagina & Uterus: enlarged (16 week size) Back/Spine/Pelvis Thoracic/Lumbar Spine: thoracic and lumbar spine normal to inspection (No CVA tenderness) Skin General: no rashes or lesions noted Objective Imaging CT scan - abdomen: My impression: CT shows a probable 11 cm uterine fibroid in the fundal location. Labs 03/18/23 17:40 03/18/23 13:50 Labs: Laboratory Results - last 24 hr 03/18/23 03/18/23 03/18/23 13:50 14:10 14:30 WBC 7.4 RBC 2.77 L Hgb 4.2 L* Hct 15.8 L* MCV 57.1 L MCH 15.3 L MCHC 26.8 L RDW 23.3 H Plt Count 256 Neut % (Auto) 82.7 H Lymph % (Auto) 11.3 L [place] % (Auto) 5.0 Eos % (Auto) 0.5 L Baso % (Auto) 0.5 Neut # (Auto) 6100 Lymph # (Auto) 800 L [place] # (Auto) 400 Eos # (Auto) 0 Baso # (Auto) 0 RBC Morphology See below Polychromasia 1+ H Hypochromasia 2+ H Anisocytosis 3+ H Microcytosis 3+ H Tear Drop Cells 1+ H Ovalocytes 1+ H Schistocytes 1+ H Sodium 139 Potassium 3.4 Chloride 108 H Carbon Dioxide 23 BUN 7 Creatinine 0.73 Estimated GFR > 60 BUN/Creatinine Ratio 9.6 Glucose 97 Calcium 9.3 Iron 18 L TIBC 407 % Saturation 4 L Transferrin 384 H Total Bilirubin 0.5 AST 20 ALT 13 Alkaline Phosphatase 63 Ammonia Total Protein 7.0 Albumin 4.1 Globulin 2.9 Albumin/Globulin Ratio 1.4 Lipase 18 L Urine Color Yellow Urine Appearance Sl cloudy Urine pH 6.0 Ur Specific [place] 1.020 Urine Protein Trace H Urine Glucose (UA) Negative Urine Ketones Negative Urine Occult Blood 3+ H Urine Nitrate Negative Urine Bilirubin Negative Urine Urobilinogen 0.2 Ur Leukocyte Esterase 1+ H Urine RBC >100/hpf H Urine WBC 5-10/hpf H Ur Squamous Epith Cells 0-1 /hpf Urine Bacteria Many (>30) H Ur Culture Indicated? Specimen cultured SARS-CoV-2 (PCR) Negative Influenza A (RT-PCR) Flu a negative Influenza B (RT-PCR) Flu b negative RSV (PCR) Negative Blood Type Antibody Screen Crossmatch 03/18/23 03/18/23 03/18/23 14:50 14:56 17:40 WBC RBC Hgb 6.0 L* Hct 20.6 L* MCV MCH MCHC RDW Plt Count Neut % (Auto) Lymph % (Auto) [place] % (Auto) Eos % (Auto) Baso % (Auto) Neut # (Auto) Lymph # (Auto) [place] # (Auto) Eos # (Auto) Baso # (Auto) RBC Morphology Polychromasia Hypochromasia Anisocytosis Microcytosis Tear Drop Cells Ovalocytes Schistocytes Sodium Potassium Chloride Carbon Dioxide BUN Creatinine Estimated GFR BUN/Creatinine Ratio Glucose Calcium Iron TIBC % Saturation Transferrin Total Bilirubin AST ALT Alkaline Phosphatase Ammonia < 9 L Total Protein Albumin Globulin Albumin/Globulin Ratio Lipase Urine Color Urine Appearance Urine pH Ur Specific [place] Urine Protein Urine Glucose (UA) Urine Ketones Urine Occult Blood Urine Nitrate Urine Bilirubin Urine Urobilinogen Ur Leukocyte Esterase Urine RBC Urine WBC Ur Squamous Epith Cells Urine Bacteria Ur Culture Indicated? SARS-CoV-2 (PCR) Influenza A (RT-PCR) Influenza B (RT-PCR) RSV (PCR) Blood Type O Negative Antibody Screen Negative Crossmatch See Detail Assessment & Plan Assessment and plan (1) Heavy menstrual period: Problem details: Patient is having sufficient menorrhagia to cause iron deficiency secondary to its manager long term care existence. Status: Acute Plan: Patient was given TXA and is being taken the OR for a D&C. Risks and benefits have been explained to the patient including those but not limited to bleeding, infection, injury to pelvic organs. This includes the uterus, tubes, ovaries, bowel, bladder, and ureters. She is aware of the potential for DVT with PE. As well as postop adhesions which could cause pain as well as bowel obstruction. She is also aware of the risk of possible uterine perforation which may necessitate emergent hysterectomy. (2) Anemia: Qualifiers: Anemia type: iron deficiency Status: Acute (3) Iron deficiency: Problem details: The patient is iron deficient secondary to prolonged and heavy menstruation. Status: Acute
--- NOTE | 2023-03-18 18:44 | PM.GYNOP.1 ---
Operative Date/Time/Diagnoses Date of procedure: 03/18/23 Time of procedure: 18:44 Pre-op diagnosis: Menorrhagia, anemia, fibroid uterus. Post-op diagnosis: same Procedure & Clinicians Procedure: Procedures Operation Date: 03/18/23 16:30 <No data on this case meets the specified criteria> Operation Date: 03/18/23 17:00 Actual Procedure Side Surgeon p Dilation and Curettage-Suction Not Applicable Bharat Shah MD Surgeon: Bharat Shah Anesthesia Type: General and Other (Paracervical) Operative Notes Findings: Uterus sounded to 11 cm. Upon the curettage there is irregularity noted on the anterior portion of the uterus. The cervix was that of a nulliparous woman and that she would never delivered a baby vaginally. Cervix remained resided high in the pelvis and the anterior portion of the vagina Closure Type: not applicable Specimen(s): endometrial curettings Estimated blood loss (mL): 100 Blood products transfused: packed red blood cells (2 units of packed red blood cells) Procedure in detail: Patient was placed in the dorsal lithotomy position in [facility] following adequate general anesthesia via endotracheal tube. At this point a pelvic examination was performed uterus was noted to be roughly 16 week size. She was then prepped and draped in the usual fashion. A time-out was performed at which concerns were addressed and the concerned about her cervix being closed and the possibility of uterine perforation was reviewed. The procedure was commenced and a speculum was placed in the vagina. Cervix was visualized grasped anteriorly with a single-tooth tenaculum. This was then grasped posteriorly with a long [place] and the single-tooth tenaculum was replaced on the posterior lip of the cervix. Uterus was sounded in the mid to anterior position 11 cm. Care was taken not to perforate the uterus. At this point the cervix was dilated up starting with 3 mm resistance was noted at 6 mm years and this was continued until 11 mm. The endometrial cavity was then sharply curetted in all 4 quadrants. Irregularities were noted on the anterior portion of the curettage. A 11 mm suction catheter was then placed in the cervix to a depth of roughly 10 cm. Suction was applied the curette was rotated and slowly withdrawn while being rotated. A scant amount of tissue was removed at this time. The cervix was inspected for bleeding none was noted. At this point a paracervical block was placed utilizing 5 cc of 0.25% Marcaine with epinephrine. The injections were placed at for and 8:00 a.m.. Care was taken to aspirate after every 2 cc of Marcaine was injected. Patient tolerated procedure well and was taken to recovery in stable condition sponge and needle counts were correct. Complications: none Post-operative Condition: stable Disposition: PACU Plan for aftercare: Following 2 units of packed red blood cells her hemoglobin you to 6 for this reason she was given another 2 units. I anticipate discharging her in the morning to home. She will need follow-up with orthopedic shoe maker for eventual care of her fibroid uterus and menorrhagia.
--- NOTE | 2023-03-18 20:07 | P.CONS_ITS ---
History of Present Illness Consult details Chief complaint: abd pain/lower back to the front Narrative: 42-year-old female, former smoker, , presents to the emergency department with worsening right lower back pain radiating to abdomen, upper abdominal pain with nausea, vomiting, diarrhea (loose) and having heavy menses in the last 2 days. Patient states that she had similar symptoms last month during her menstrual cycle, that lasted for 5 days. Patient states that she is been having these worsening symptoms during her menses over the last 4 months. Patient is concerned because this pain feels different from previous months. Patient states that she started bleeding roughly 2 days ago has been changing pattern hourly basis she spent passes small clots as well as a few large ones. She is also been complaining of some pain and nausea and vomiting with her cramping. She states the pain goes from the back to the front. She states her periods occur on a regular cycle she flows for 3 days she is been having difficulty with heavy periods since the onset of her periods at roughly 10 years of age. She states she was anemic at her 1st delivery. She is not seen an Consumer Relations Specialist for the last 16 years. Patient also states she is been feeling tired and fatigued. CBC in the ER shows a hemoglobin of 4.2 hematocrit of 15.8. Her MCV is 57.11 MCHC is 26.8 iron saturation is 4% iron is 18. Status post D&C and blood transfusion. Last H&H is 6/20.6, LFT normal, UA showed hematuria, LE+ and WBC 5-10. Denies any dysurua. Given Cefazolin 2g IV, Toradol, Ibuprofen, Iron 300 mg IV, NS 1L. Meds Home Medications and Allergies Home Medications Medication Instructions Recorded Confirmed Type acetaminophen 500 mg tablet 1,000 mg PO Q6H PRN Pain (Scale 07/18/22 03/18/23 History (Tylenol Extra Strength) Score 1-3) Allergies Allergy/AdvReac Type Severity Reaction Status Date / Time beeswax Allergy Intermediate Affects Verified 03/18/23 13:33 Breathing grapefruit Allergy Intermediate Rash Verified 03/18/23 13:33 honey Allergy Intermediate Affects Verified 03/18/23 13:33 Breathing pineapple Allergy Intermediate Rash Verified 03/18/23 13:33 Review of Systems Review of Systems ROS: Yes All systems reviewed with the patient and are negative except as otherwise documented Constitutional Constitutional: Reports as per HPI and Reports system reviewed and no additional complaints, except as documented Eyes Eyes: Reports as per HPI and Reports system reviewed and no additional complaints, except as documented ENT Ears, Nose, Mouth, and Throat: Yes as per HPI and Yes system reviewed and no additional complaints, except as documented Cardiovascular Cardiovascular: Reports system reviewed and no additional complaints, except as documented Respiratory Respiratory: Reports system reviewed and no additional complaints, except as documented Gastrointestinal Gastrointestinal: Reports system reviewed and no additional complaints, except as documented Genitourinary Genitourinary: Reports system reviewed and no additional complaints, except as documented Musculoskeletal Musculoskeletal: Reports system reviewed and no additional complaints, except as documented, Reports abnormal gait and Reports numbness Neurologic Neurologic: Reports system reviewed and no additional complaints, except as documented, Reports abnormal gait, Reports confusion and Reports numbness Psychiatric Psychiatric: Reports system reviewed and no additional complaints, except as documented and Reports confusion Exam Vital Signs (past 8 hours): - 03/18/23 13:24 03/18/23 13:40 03/18/23 13:41 Temperature 97.6 F Pulse Rate 82 79 77 Respiratory Rate 20 Blood Pressure 151/67 H Pulse Oximetry 100 99 100 Oxygen Delivery Method Room Air 03/18/23 13:41 03/18/23 14:00 03/18/23 14:00 Temperature Pulse Rate 87 Respiratory Rate Blood Pressure 151/65 H 141/64 H Pulse Oximetry 99 Oxygen Delivery Method 03/18/23 14:12 03/18/23 14:12 03/18/23 14:30 Temperature Pulse Rate 81 78 Respiratory Rate Blood Pressure 153/67 H Pulse Oximetry 100 99 Oxygen Delivery Method 03/18/23 14:59 03/18/23 14:59 03/18/23 15:00 Temperature Pulse Rate 84 80 Respiratory Rate Blood Pressure 133/58 L Pulse Oximetry 100 100 Oxygen Delivery Method 03/18/23 15:01 03/18/23 15:01 03/18/23 15:05 Temperature Pulse Rate 78 Respiratory Rate Blood Pressure 127/60 126/58 L Pulse Oximetry 100 Oxygen Delivery Method 03/18/23 15:05 03/18/23 15:10 03/18/23 15:10 Temperature Pulse Rate 90 79 Respiratory Rate Blood Pressure 117/57 L Pulse Oximetry 100 100 Oxygen Delivery Method 03/18/23 15:15 03/18/23 15:15 03/18/23 15:21 Temperature Pulse Rate 78 78 Respiratory Rate 16 Blood Pressure 122/57 L Pulse Oximetry 100 100 Oxygen Delivery Method Room Air 03/18/23 15:26 03/18/23 15:26 03/18/23 15:30 Temperature Pulse Rate 82 74 Respiratory Rate Blood Pressure 141/63 H Pulse Oximetry 100 100 Oxygen Delivery Method 03/18/23 15:30 03/18/23 15:35 03/18/23 15:40 Temperature Pulse Rate 73 72 Respiratory Rate Blood Pressure 141/63 H Pulse Oximetry 100 100 Oxygen Delivery Method 03/18/23 15:45 03/18/23 15:47 03/18/23 15:47 Temperature Pulse Rate 74 73 Respiratory Rate Blood Pressure 143/67 H Pulse Oximetry 100 100 Oxygen Delivery Method 03/18/23 15:50 03/18/23 15:55 03/18/23 16:00 Temperature Pulse Rate 81 79 Respiratory Rate Blood Pressure 146/61 H Pulse Oximetry 100 99 Oxygen Delivery Method 03/18/23 16:00 03/18/23 16:05 03/18/23 16:10 Temperature Pulse Rate 78 79 Respiratory Rate Blood Pressure 145/62 H Pulse Oximetry 99 99 Oxygen Delivery Method 03/18/23 16:10 03/18/23 16:12 03/18/23 16:15 Temperature 98.5 F Pulse Rate 74 69 72 Respiratory Rate 16 Blood Pressure 145/62 H Pulse Oximetry 99 99 Oxygen Delivery Method 03/18/23 16:15 03/18/23 16:20 03/18/23 16:20 Temperature Pulse Rate 81 Respiratory Rate Blood Pressure 147/68 H 154/70 H Pulse Oximetry 98 Oxygen Delivery Method 03/18/23 16:24 03/18/23 16:25 03/18/23 16:29 Temperature 97.1 F L Pulse Rate 86 86 Respiratory Rate 16 Blood Pressure 152/68 H 121/59 L Pulse Oximetry 99 Oxygen Delivery Method 03/18/23 16:30 03/18/23 17:04 03/18/23 17:15 Temperature 98.5 F 97 F L 96.9 F L Pulse Rate 68 86 72 Respiratory Rate 16 28 H 30 H Blood Pressure 144/60 H 115/55 L 105/51 L Pulse Oximetry Oxygen Delivery Method 03/18/23 17:35 03/18/23 17:39 03/18/23 17:43 Temperature 97.1 F L Pulse Rate 87 84 787 H Respiratory Rate 11 L 15 11 L Blood Pressure 123/41 L 118/49 L 113/46 L Pulse Oximetry 100 100 100 Oxygen Delivery Method Room Air Room Air Room Air 03/18/23 17:48 03/18/23 17:56 03/18/23 18:32 Temperature Pulse Rate 75 71 79 Respiratory Rate 14 15 Blood Pressure 124/56 L 126/52 L Pulse Oximetry 99 99 99 Oxygen Delivery Method Room Air Room Air 03/18/23 18:45 03/18/23 18:46 03/18/23 18:46 Temperature Pulse Rate 68 66 Respiratory Rate Blood Pressure 137/63 Pulse Oximetry 99 100 Oxygen Delivery Method 03/18/23 18:54 03/18/23 19:00 03/18/23 19:00 Temperature Pulse Rate 66 Respiratory Rate Blood Pressure 140/65 Pulse Oximetry 100 Oxygen Delivery Method Room Air 03/18/23 19:15 Temperature Pulse Rate 64 Respiratory Rate Blood Pressure Pulse Oximetry 99 Oxygen Delivery Method Oxygen Delivery Method Room Air Const General: cooperative, comfortable and well developed Orientation: alert and oriented x3 HENMT Head: normal to inspection, normocephalic and atraumatic Face and sinus: normal facial exam Mouth: oral mucosae normal and moist mucous membranes Throat: posterior oropharynx normal Eyes General: appearance normal, both eyes and all related structures Pupils: PERRL EOM: EOM intact bilaterally Neck Neck: normal visual inspection and full ROM Chest Chest: normal inspection of the chest Resp Effort & Inspection: normal respiratory effort and able to speak in complete sentences Auscultation: clear to auscultation bilaterally Cardio Palpation: normal PMI Rate: regular rate Rhythm: regular rhythm Heart Sounds: S1 normal and S2 normal GI Inspection: normal to inspection Palpation: soft and no hepatosplenomegaly Auscultation: normal bowel sounds Skin General: no rashes or lesions noted Lesions: no lesions Rashes: no rashes Trauma: no lacerations or abrasions Neuro General: patient alert, patient awake, patient oriented x3 and no focal motor deficits Cranial Nerves: CN's II-XI intact bilaterally Cognition: normal cognition Speech: speech normal Gait: normal gait Motor: muscle tone normal throughout Sensory Exam: no sensory deficits noted Extrem General: full ROM and no calf tenderness Psych Appearance: grossly normal Mental Status: mental status grossly normal Speech and Movement: speech and movement normal Objective Labs 03/18/23 17:40 03/18/23 13:50 Labs: Laboratory Results - last 24 hr 03/18/23 03/18/23 03/18/23 13:50 14:10 14:30 WBC 7.4 RBC 2.77 L Hgb 4.2 L* Hct 15.8 L* MCV 57.1 L MCH 15.3 L MCHC 26.8 L RDW 23.3 H Plt Count 256 Neut % (Auto) 82.7 H Lymph % (Auto) 11.3 L [place] % (Auto) 5.0 Eos % (Auto) 0.5 L Baso % (Auto) 0.5 Neut # (Auto) 6100 Lymph # (Auto) 800 L [place] # (Auto) 400 Eos # (Auto) 0 Baso # (Auto) 0 RBC Morphology See below Polychromasia 1+ H Hypochromasia 2+ H Anisocytosis 3+ H Microcytosis 3+ H Tear Drop Cells 1+ H Ovalocytes 1+ H Schistocytes 1+ H Sodium 139 Potassium 3.4 Chloride 108 H Carbon Dioxide 23 BUN 7 Creatinine 0.73 Estimated GFR > 60 BUN/Creatinine Ratio 9.6 Glucose 97 Calcium 9.3 Iron 18 L TIBC 407 % Saturation 4 L Transferrin 384 H Total Bilirubin 0.5 AST 20 ALT 13 Alkaline Phosphatase 63 Ammonia Total Protein 7.0 Albumin 4.1 Globulin 2.9 Albumin/Globulin Ratio 1.4 Lipase 18 L Urine Color Yellow Urine Appearance Sl cloudy Urine pH 6.0 Ur Specific [place] 1.020 Urine Protein Trace H Urine Glucose (UA) Negative Urine Ketones Negative Urine Occult Blood 3+ H Urine Nitrate Negative Urine Bilirubin Negative Urine Urobilinogen 0.2 Ur Leukocyte Esterase 1+ H Urine RBC >100/hpf H Urine WBC 5-10/hpf H Ur Squamous Epith Cells 0-1 /hpf Urine Bacteria Many (>30) H Ur Culture Indicated? Specimen cultured SARS-CoV-2 (PCR) Negative Influenza A (RT-PCR) Flu a negative Influenza B (RT-PCR) Flu b negative RSV (PCR) Negative Blood Type Antibody Screen Crossmatch 03/18/23 03/18/23 03/18/23 14:50 14:56 17:40 WBC RBC Hgb 6.0 L* Hct 20.6 L* MCV MCH MCHC RDW Plt Count Neut % (Auto) Lymph % (Auto) [place] % (Auto) Eos % (Auto) Baso % (Auto) Neut # (Auto) Lymph # (Auto) [place] # (Auto) Eos # (Auto) Baso # (Auto) RBC Morphology Polychromasia Hypochromasia Anisocytosis Microcytosis Tear Drop Cells Ovalocytes Schistocytes Sodium Potassium Chloride Carbon Dioxide BUN Creatinine Estimated GFR BUN/Creatinine Ratio Glucose Calcium Iron TIBC % Saturation Transferrin Total Bilirubin AST ALT Alkaline Phosphatase Ammonia < 9 L Total Protein Albumin Globulin Albumin/Globulin Ratio Lipase Urine Color Urine Appearance Urine pH Ur Specific [place] Urine Protein Urine Glucose (UA) Urine Ketones Urine Occult Blood Urine Nitrate Urine Bilirubin Urine Urobilinogen Ur Leukocyte Esterase Urine RBC Urine WBC Ur Squamous Epith Cells Urine Bacteria Ur Culture Indicated? SARS-CoV-2 (PCR) Influenza A (RT-PCR) Influenza B (RT-PCR) RSV (PCR) Blood Type O Negative Antibody Screen Negative Crossmatch See Detail [facility] Medical History Vision disorder Acne Depression Anxiety Restless leg syndrome Migraines Headache Shoulder pain Foot pain Chronic back pain Ankle pain Chicken pox Blindness Painful menstrual periods Heavy menstrual period Epiploic appendagitis (~2016) Tetrahydrocannabinol (THC) use disorder, mild, abuse MADDI (generalized anxiety disorder) Vision loss Cataract Surgical History Anesthesia History of section History of cholecystectomy (~2006) Family History Father Cataracts, bilateral Mother Glaucoma Grandfather Cancer Social History household members: friend(s) Tobacco & Substance Use Smoking Status: Current some day smoker Tobacco: How many years used: 13 alcohol intake: current substance use type: marijuana (current, anxiety ) Assessment & Plan Assessment and plan (1) Iron deficiency: Problem details: The patient is iron deficient secondary to prolonged and heavy menstruation. 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 Status: Acute Plan Assessment: -Acute post hemorrhagic anemia, -heavy menstruation, -s/p D&C --hematuria and possible UTI. ( denies any dysuria) Plan: 2 Units of PRBC ordered H&H monitor post transfusion and transfusion according to H&H Iron supplements Pain control and antiemetic post op monitor for any post op infection prophylactic laxatives prn for pos-narcotic constipation DVT and Abx prophylaxis defer to admitting physician Urine culture Time Spent With Patient Time with patient: 50 to 69 minutes with 50% spent counseling/coordinating care
[2023-03-18] MEDS: ACETAMINOPHEN 325 MG TABLET 650 MG PO (20:13)
[2023-03-18] MEDS: IRON SUCROSE 300 MG in SODIUM CHLORIDE 0.9% 250 ML 176.667 MG IV (20:35)
[2023-03-18] MEDS: SODIUM CHLORIDE 0.9% FLUSH 10 ML IV (20:36)
[2023-03-18 20:58] LABS: MRSA (Nasal) PCR Not Detected (Not Detect)
[2023-03-19 01:50] VITALS: BP 155/58; PULSE 51; RESP 18; TEMP 36.8
[2023-03-19 02:23] LABS: Add Manual Diff / Slide Review NO; Basophils Absolute Auto 200 /uL (0-100); Basophils Percent Auto 2.6 % (0-2); Eosinophils Absolute Auto 0 /uL (0-450); Eosinophils Percent Auto 0.1 % (2-4); Hemoglobin 7.8 g/dL (12.0-16.0); Lymphocytes Absolute Auto 800 /uL (1100-4500); Lymphocytes Percent Auto 8.9 % (25-40); Mean Corpuscular Hemoglobin 20.7 PG (26-34); Mean Corpuscular Volume 69.1 fL (80-100); Monocytes Absolute Auto 300 /uL (0-900); Monocytes Percent Auto 3.2 % (3-14); Neutrophils Absolute Auto 8000 /uL (1500-7000); Neutrophils Percent Auto 85.2 % (50-75); Platelet Count 265 X10^3/uL (150-400); Red Blood Cell Count 3.76 X10^6/uL (4.0-5.2); Red Cell Distribution Width 32.7 % (11.6-14.8); White Blood Cell Count 9.3 X10^3/uL (4.5-11.0)
--- NOTE | 2023-03-19 02:32 | PC.NURSE ---
During the completion of the 4th unit of PRBC, the patient c/o hard time breathing and chest pressure rating 3/10. EKG obtained, reading sinus simon, rate 56, BP 155/58, RR 18, SpO2 99% on RA, T 98.2, lung sounds CTA. Post transfusion H/H drawn along with additional blood. After lab draw, patient stated the symptoms are gone I think it's because I was lying the wrong was on my back.. Tele Hospitalist, Dr Mauro notified via Webex. Order received to continue with ordered H/H, no other orders at this time.
[2023-03-19 02:43] LABS: Anisocytosis 3+; Hypochromasia 1+; Microcytosis 2+; Ovalocytes 1+; Polychromasia 1+
[2023-03-19 02:44] LABS: Schistocytes 1+
[2023-03-19 04:00] VITALS: BP 123/75; PULSE 57; RESP 19; TEMP 37.1; O2SAT 98
[2023-03-19] MEDS: ACETAMINOPHEN 325 MG TABLET 650 MG PO (06:16)
[2023-03-19] MEDS: IBUPROFEN 600 MG TABLET PO (06:16)
--- NOTE | 2023-03-19 08:05 | PM.PNPO.1 ---
Subjective Subjective Date Patient Seen: 03/19/23 Time Patient Seen: 08:06 Interval history: Patient is status post D&C for menorrhagia and severe anemia. She states she is feeling much improved this morning. Her pain is a 1/10. She relates her bleeding is minimal at this time. Exam Vital Signs (past 8 hours): - 03/19/23 01:50 03/19/23 04:00 Temperature 98.2 F 98.7 F Pulse Rate 51 L 57 L Respiratory Rate 18 19 Blood Pressure 155/58 H 123/75 Pulse Oximetry 98 Oxygen Flow Rate 0 Oxygen Delivery Method Room Air Oxygen Flow Rate 0 Const General: cooperative, healthy appearing and comfortable HENCA Head: normal to inspection Resp Effort & Inspection: normal respiratory effort Auscultation: clear to auscultation bilaterally Cardio Palpation: normal PMI Rate: regular rate Rhythm: regular rhythm Heart Sounds: S1 normal and S2 normal GI Inspection: normal to inspection Palpation: soft (suprapubic tenderness has almost completely resolved) Skin General: no rashes or lesions noted and turgor normal Extrem General: no calf tenderness Objective Labs 03/19/23 02:05 03/18/23 13:50 Labs: Laboratory Results - last 24 hr 03/18/23 03/18/23 03/18/23 13:50 14:10 14:30 WBC 7.4 RBC 2.77 L Hgb 4.2 L* Hct 15.8 L* MCV 57.1 L MCH 15.3 L MCHC 26.8 L RDW 23.3 H Plt Count 256 Neut % (Auto) 82.7 H Lymph % (Auto) 11.3 L [place] % (Auto) 5.0 Eos % (Auto) 0.5 L Baso % (Auto) 0.5 Neut # (Auto) 6100 Lymph # (Auto) 800 L [place] # (Auto) 400 Eos # (Auto) 0 Baso # (Auto) 0 RBC Morphology See below Polychromasia 1+ H Hypochromasia 2+ H Anisocytosis 3+ H Microcytosis 3+ H Tear Drop Cells 1+ H Ovalocytes 1+ H Schistocytes 1+ H Sodium 139 Potassium 3.4 Chloride 108 H Carbon Dioxide 23 BUN 7 Creatinine 0.73 Estimated GFR > 60 BUN/Creatinine Ratio 9.6 Glucose 97 Calcium 9.3 Iron 18 L TIBC 407 % Saturation 4 L Transferrin 384 H Total Bilirubin 0.5 AST 20 ALT 13 Alkaline Phosphatase 63 Ammonia Total Protein 7.0 Albumin 4.1 Globulin 2.9 Albumin/Globulin Ratio 1.4 Lipase 18 L Urine Color Yellow Urine Appearance Sl cloudy Urine pH 6.0 Ur Specific [place] 1.020 Urine Protein Trace H Urine Glucose (UA) Negative Urine Ketones Negative Urine Occult Blood 3+ H Urine Nitrate Negative Urine Bilirubin Negative Urine Urobilinogen 0.2 Ur Leukocyte Esterase 1+ H Urine RBC >100/hpf H Urine WBC 5-10/hpf H Ur Squamous Epith Cells 0-1 /hpf Urine Bacteria Many (>30) H Ur Culture Indicated? Specimen cultured Nasal Screen MRSA (PCR) SARS-CoV-2 (PCR) Negative Influenza A (RT-PCR) Flu a negative Influenza B (RT-PCR) Flu b negative RSV (PCR) Negative Blood Type Antibody Screen Crossmatch 03/18/23 03/18/23 03/18/23 14:50 14:56 17:40 WBC RBC Hgb 6.0 L* Hct 20.6 L* MCV MCH MCHC RDW Plt Count Neut % (Auto) Lymph % (Auto) [place] % (Auto) Eos % (Auto) Baso % (Auto) Neut # (Auto) Lymph # (Auto) [place] # (Auto) Eos # (Auto) Baso # (Auto) RBC Morphology Polychromasia Hypochromasia Anisocytosis Microcytosis Tear Drop Cells Ovalocytes Schistocytes Sodium Potassium Chloride Carbon Dioxide BUN Creatinine Estimated GFR BUN/Creatinine Ratio Glucose Calcium Iron TIBC % Saturation Transferrin Total Bilirubin AST ALT Alkaline Phosphatase Ammonia < 9 L Total Protein Albumin Globulin Albumin/Globulin Ratio Lipase Urine Color Urine Appearance Urine pH Ur Specific [place] Urine Protein Urine Glucose (UA) Urine Ketones Urine Occult Blood Urine Nitrate Urine Bilirubin Urine Urobilinogen Ur Leukocyte Esterase Urine RBC Urine WBC Ur Squamous Epith Cells Urine Bacteria Ur Culture Indicated? Nasal Screen MRSA (PCR) SARS-CoV-2 (PCR) Influenza A (RT-PCR) Influenza B (RT-PCR) RSV (PCR) Blood Type O Negative Antibody Screen Negative Crossmatch See Detail 03/18/23 03/19/23 19:48 02:05 WBC 9.3 RBC 3.76 L Hgb 7.8 L Hct 26.0 L MCV 69.1 L D MCH 20.7 L MCHC 30.0 D RDW 32.7 H Plt Count 265 Neut % (Auto) 85.2 H Lymph % (Auto) 8.9 L [place] % (Auto) 3.2 Eos % (Auto) 0.1 L Baso % (Auto) 2.6 H Neut # (Auto) 8000 H Lymph # (Auto) 800 L [place] # (Auto) 300 Eos # (Auto) 0 Baso # (Auto) 200 H RBC Morphology See below Polychromasia 1+ H Hypochromasia 1+ H Anisocytosis 3+ H Microcytosis 2+ H Tear Drop Cells Ovalocytes 1+ H Schistocytes 1+ H Sodium Potassium Chloride Carbon Dioxide BUN Creatinine Estimated GFR BUN/Creatinine Ratio Glucose Calcium Iron TIBC % Saturation Transferrin Total Bilirubin AST ALT Alkaline Phosphatase Ammonia Total Protein Albumin Globulin Albumin/Globulin Ratio Lipase Urine Color Urine Appearance Urine pH Ur Specific [place] Urine Protein Urine Glucose (UA) Urine Ketones Urine Occult Blood Urine Nitrate Urine Bilirubin Urine Urobilinogen Ur Leukocyte Esterase Urine RBC Urine WBC Ur Squamous Epith Cells Urine Bacteria Ur Culture Indicated? Nasal Screen MRSA (PCR) Not detected SARS-CoV-2 (PCR) Influenza A (RT-PCR) Influenza B (RT-PCR) RSV (PCR) Blood Type Antibody Screen Crossmatch [facility] Medical History Vision disorder Acne Depression Anxiety Restless leg syndrome Migraines Headache Shoulder pain Foot pain Chronic back pain Ankle pain Chicken pox Blindness Painful menstrual periods Heavy menstrual period Epiploic appendagitis (~2016) Tetrahydrocannabinol (THC) use disorder, mild, abuse MADDI (generalized anxiety disorder) Vision loss Cataract Surgical History Anesthesia History of section History of cholecystectomy (~2006) Family History Father Cataracts, bilateral Mother Glaucoma Grandfather Cancer Social History household members: friend(s) Smoking Status: Current some day smoker Tobacco: How many years used: 13 alcohol intake: current substance use type: marijuana (current, anxiety ) Assessment & Plan Post-op Postoperative Procedures: Procedures Operation Date: 03/18/23 16:30 <No data on this case meets the specified criteria> Operation Date: 03/18/23 17:00 Actual Procedure Side Surgeon p Dilation and Curettage-Suction Not Applicable Bharat Shah MD Postoperative day: 1 Postoperative status: doing well Postoperative status narrative: Patient has suprapubic tenderness has almost completely resolved. Her bleeding is minimal. Postoperative plan: routine post-op care Postoperative plan narrative: I have instructed patient to start taking iron 1 twice daily. She states she would like to take gummy iron I have told her that is a possibility. I have encouraged her to take her iron with vitamin-C. I have told her to watch for constipation make sure she pushes fluids increases the fiber in her diet and may take Colace. Patient needs to follow up in the medical case worker clinic in roughly 1-2 weeks. Eventually she needs to have a definitive procedure for her menorrhagia as well as fibroid uterus. Time Spent With Patient Time with patient: 15-24 minutes
[2023-03-19 08:11] VITALS: BP 151/67; PULSE 51; RESP 16; TEMP 37.1; O2SAT 100
[2023-03-19 08:53] LABS: Hematocrit 25.8 % (36-46); Hemoglobin 7.9 g/dL (12.0-16.0)
--- NOTE | 2023-03-19 09:30 | CM.DANOTE ---
DCP Assessment Note Patient is a 42yo F here following period of heavy menstruation with a D&C on 03.18.23 PCP Eduarda Eng Payer [employer] and Medicaid PILOT STEAM YACHT reviewed EMR. PILOT STEAM YACHT entered room and introduced self and role. Patient accompanied by friend Skip at bedside ([phone]). Patient lives with friend Skip at the [facility] where she also works. Patient reports being indept at baseline. Does not drive, Skip drives for her. Patient reports Skip is her emergency contact. Patient requested a doctor's note. PILOT STEAM YACHT completed medical excuse form and gave it to RN to include with her discharge paperwork. Patient and friend deny need for other resources at this time. Patient inquired about when her IV could come out because it was hurting her. PILOT STEAM YACHT updated RN. Plan: patient to d/c home today, transport with Skip. No additional needs at this time. CM team will continue to follow as needed. LES Reyes Discharge Planning/Care Management CM Discharge Assessment Start: 03/19/23 09:28 Freq: Status: Active Protocol: Document 03/19/23 09:28 (Rec: 03/19/23 09:30 [id number]) Discharge Planning Assessment Assigned Resist Coater Developer LES Alnoso DPOA/Assigned Designee Name Skip (best friend) Contact Information [phone] Advance Directives? No History Provided By Patient,Medical Record Prior Living Arrangements Other Comment Live in [facility] Household Members friend(s) Type of transporation used prior to Relies on Others admit Comment Friend Skip drives her Independent with ADL's Yes Is patient alert and oriented? Yes Barriers to Discharge No Discharge Plan Home Transportation Arrangement best friend Referrals Initiated None needed Whiteboard Updated in Patient Room with Yes name and ext. # of Resist Coater Developer Review Status In Process Next Review Type Continued Stay Review
== END 2023-03-19 09:51 | disposition home or self-care (01) | DRG 517 ==
LOC: ED 16:32 → AC 17:20 → ICU 03-19 08:20 → AC 03-19 13:55
PROVIDERS: Family Medicine; Student in an Organized Health Care Education/Training Program; Admitting Provider Obstetrics & Gynecology; Emergency Provider Registered Nurse; PCP Family Medicine; Referring Provider Emergency Medicine; Visit Provider Obstetrics & Gynecology
PROC: 0UDB7ZX Extraction of Endometrium, Via Natural or Artificial Opening, Diagnostic (ICD-10-PCS; CPT 58120; principal; 2023-03-18 17:00)
DX: N92.0 Excessive and frequent menstruation with regular cycle (principal); N39.0 Urinary tract infection, site not specified; D50.9 Iron deficiency anemia, unspecified
CPT/HCPCS: 0241U; 36415; 36430; 58120; 74177; 80053; 81001; 81003; 81025; 82140; 83540; 83550; 83690; 85014; 85018; 85025; 86850; 86900; 86901; 87086; 87797; 93005; 93010; 96374; 96375; 99222; 99285; G0378; P9016; J0330; J0690; J1100; J1756; J1885; J2250; J2405; J2704; J3010; J3490; Q9967

== ENCOUNTER → 2023-04-02 14:09 | Outpatient (CLI) | payer OTHER, MEDICAID, SELFPAY ==
[2023-03-19 10:16] VITALS: BMI 44.8
--- NOTE | 2023-04-02 14:10 | DI.US.S_ITS ---
PROCEDURE: US PELVIC COMPLETE INDICATIONS: recent D C for heavy bleeding; evaluate uterine anatomy TECHNIQUE: Real-time scanning was performed of the pelvic organs, with image documentation. Additional endovaginal scanning was necessary due to incomplete visualization of the adnexal and endometrial structures by transabdominal scanning. COMPARISON: [facility], CT, CT ABDOMEN PELVIS W CON, 03/18/2023, 14:36. FINDINGS: This is a limited study is patient did not have a full bladder at the time of the exam. Uterus: Uterus is anteverted and markedly enlarged measuring 19.8 x 16.2 x 10.8 cm. The myometrium is heterogeneous. The endometrium was not visualized. There is an ill-defined mass within the uterus which may represent a discrete fibroid. However, blood products with internal vascularity cannot be excluded. Ovaries: The ovaries were not visualized. Other: No pathologic free abdominal or pelvic fluid. IMPRESSION: Markedly limited study. The uterus is markedly enlarged. Differential considerations include fibroid uterus and endometrial hemorrhage with possible retained products of conception. No prior studies are available for comparison. If prior studies become available, this could be helpful to differentiate a pre-existing fibroid from recent intrauterine hemorrhage in retained products of conception. We strive to produce accurate, complete, and clear reports of imaging services. To assist us in improving patient care, this report was composed using standard report templates and voice recognition software. Therefore, it may contain abnormal punctuation, insertions and/or omissions. Occasional wrong-word or sound-alike substitutions may occur. Though we review the report and make efforts to correct it, we do recommend that the report be read carefully in proper context to recognize any text inaccuracies. Dictated by: Kiesha Vee M.D. on 04/02/2023 at 15:51 Approved by: Kiesha Vee M.D. on 04/02/2023 at 15:55
== END ==
PROVIDERS: PCP Family Medicine; Referring Provider Student in an Organized Health Care Education/Training Program; Visit Provider Student in an Organized Health Care Education/Training Program
DX: N92.0 Excessive and frequent menstruation with regular cycle (principal); N85.2 Hypertrophy of uterus
CPT/HCPCS: 76830; 76856

== ENCOUNTER 2023-04-27 06:20 | Day surgery (SDC) | payer OTHER, MEDICAID, SELFPAY ==
[2023-03-19 10:16] VITALS: BMI 44.8
[2023-04-19 14:34] VITALS: BMI 42.0
[2023-04-27] VITALS (8 sets, daily range): BP systolic 103–149; BP diastolic 47–75; PULSE 74–97; RESP 16; TEMP 36.2–36.8; O2SAT 97–99; BMI 42.0
--- NOTE | 2023-04-27 | PATH_ITS ---
[facility] Accession Number: [id number] No. of containers..01 Tissue . 01 Material submitted: . body - UTERINE FIBROID . 01 Diagnosis: A. Uterine Fibroid, Myomectomy: Fragments of mature smooth muscle consistent with leiomyoma with extensive hyalinization. Background with few fragments of weakly proliferative endometrium with evidence of shedding/breakdown. No evidence of endometrial intraepithelial neoplasia or malignancy. MRV 05/09/2023 1408 Local . 01 Electronically signed: . Gillian Obrien MD, Pathologist NPI- [id number] . 01 Gross description: . The specimen is received in formalin labeled with the patient's name, , and uterine fibroid, consists of multiple coy, rubbery soft tissue fragments admixed with hemorrhagic material aggregating to 6.3 x 4.3 x 2.5 cm. No discrete lesions are identified. Internal Security Manager sections are submitted in cassettes A1-A5. ([id number]) /MRV 05/03/2023 1758 Local . 01 Pathologist provided ICD-10: D25.0 . 01 CPT . 218629 Specimen Comment: A courtesy copy of this report has been sent to [facility] Performed at: 01 [facility] [address] [place] [address] [address], [place], [place] [id number] MD Eusebio Delgado MD Phone: [phone]
[2023-04-27] MEDS: LACTATED RINGERS 1,000 ML 84 ML IV ×2 (06:57→08:45)
--- NOTE | 2023-04-27 07:28 | SUR.OPER ---
Lithotomy on padded OR bed, head on pillow, arms secured on padded arm boards at <90 degrees abduction. Legs secured in padded yellow fins stirrups.
--- NOTE | 2023-04-27 07:53 | PM.PREOP ---
Pre-operative Note Interval Note History & Physical reviewed/Exam performed by Physician: Yes Changes to H&P: No H&P completed within 30 days and has changed as indicated here:: No changes to her medical or surgical history. Pt desires to have Mirena IUD placed at time of hysteroscopy, this was added to the surgical consent.
[2023-04-27] MEDS: TRANEXAMIC ACID 1,000 MG VIAL 1000 MG INJ (09:47)
--- NOTE | 2023-04-27 10:07 | P.OP_ITS ---
Operative Date/Time/Diagnoses Date of procedure: 04/27/23 Time of procedure: 07:45 Pre-op diagnosis: Abnormal uterine bleeding Uterine leiomyomata Post-op diagnosis: same Procedure & Clinicians Procedure: Diagnostic hysteroscopy Hysteroscopic myomectomy Mirena IUD insertion Same procedure as scheduled: Yes Indications: 42-year-old s/p tubal ligation here for planned hysteroscopy for uterine fibroids. She previously underwent an emergent D&C for heavy vaginal bleeding. She states she has had regular monthly cycles for most of her life, which usually last 3 days. She reports heavy flow for those 3 days but then it tapers off. She states that this month she had a much heavier cycle with a lot of pain and cramping, which led to her ER visit. Surgeon: Radha Tamayo Click Yes if Unassisted: Yes Anesthesia Type: General Operative Notes Findings: Large, bulky, anteverted uterus approx 20wk sized with cervix behind the pubic bone on bimanual exam. Endometrial cavity notable for a large 6-7 cm submucosal fibroid. Specimen(s): other (Uterine fibroid) Estimated Blood Loss (mL): 500 Blood products transfused: none Procedure in detail: The risks, benefits, indications and alternatives of the procedure were reviewed with the patient and informed consent was obtained. The pt was taken to the operating room where general anesthesia with LMA was obtained without difficulty. The pt was then placed in the low lithotomy position using gel- padded Marcus stirrups. Sequential compression devices were placed bilaterally for VTE prophylaxis. The pt was then prepped and draped in the sterile fashion. A sterile speculum was placed in the patient?s vagina and the cervix was visualized. A single tooth tenaculum was used to grasp the anterior lip of the cervix. The operative hysteroscope was first primed and pressure set at 80mmHg. The operative hysteroscope was then advanced through the endocervical canal under direct visualization. The uterus was distended with warm saline, and notable for the above findings. The Myosure XL was then inserted into the operative hysteroscope. The fibroid was then resected as much as possible, however poor visualization due to bleeding was noted throughout the case. The pressure was increased to 100mmHg, and the Myosure XL was replaced at one point to aid with resection and visualization. Due to poor visualization and the large size of the fibroid, the procedure had to be ended prior to complete resection due to fluid deficit of 2500cc. The operative hysteroscope was then removed under direct visualization. Tissue obtained was sent to pathology for review. The single tooth tenaculum was removed from the anterior lip of the cervix. The tenaculum site was noted to be hemostatic after direct pressure was applied, however brisk uterine bleeding was noted. She was given 1 g of TXA IV, with slowing the vaginal bleeding. A Mirena IUD was then placed in the uterine cavity following manufacture's instructions. All instruments were then removed from the patient?s vagina. Hysteroscopic fluid deficit was 2500cc of normal saline. The patient tolerated the procedure well. At the completion of the case the sponge and needle counts were correct x 2. The patient was taken to the PACU in stable condition. Mirena IUD lot #[id number]; Exp Complications: none Post-operative Condition: stable Disposition: PACU Plan for aftercare: Due to significant vaginal bleeding during this case, and her history of anemia, an H&H was checked in the PACU which was 8.0/24.5. She was given 200 mg Venofir IV prior to discharge.
[2023-04-27 10:43] LABS: Hematocrit 24.5 % (36-46)
[2023-04-27] MEDS: IRON SUCROSE 200 MG in SODIUM CHLORIDE 0.9% 100 ML 220 MG IV (11:52)
== END 2023-04-27 12:42 | disposition home or self-care (01) ==
PROVIDERS: Nurse Anesthetist, Certified Registered; PCP Family Medicine; Referring Provider Student in an Organized Health Care Education/Training Program; Visit Provider Student in an Organized Health Care Education/Training Program
PROC: 0UDB8ZZ Extraction of Endometrium, Via Natural or Artificial Opening Endoscopic (ICD-10-PCS; CPT 58558; principal; 2023-04-27 07:45)
DX: N93.9 Abnormal uterine and vaginal bleeding, unspecified (principal); Z30.430 Encounter for insertion of intrauterine contraceptive device; D25.9 Leiomyoma of uterus, unspecified
CPT/HCPCS: 58561; 58300; 85014; 85018; C1776; J1100; J1756; J2405; J2704; J3010; J7298

== ENCOUNTER 2023-06-01 14:13 | Emergency (ER) | payer OTHER, MEDICAID, SELFPAY ==
[2023-03-19 10:16] VITALS: BMI 44.8
[2023-06-01] VITALS (10 sets, daily range): BP systolic 161–194; BP diastolic 72–88; PULSE 60–74; RESP 16; TEMP 36.6; O2SAT 97–100; BMI 42.3
--- NOTE | 2023-06-01 14:44 | DI.US.S_ITS ---
PROCEDURE: US PELVIC COMPLETE INDICATIONS: Known uterine fibroids, increased vaginal bleeding TECHNIQUE: Real-time scanning was performed of the pelvic organs, with image documentation. Additional endovaginal scanning was necessary due to incomplete visualization of the adnexal and endometrial structures by transabdominal scanning. COMPARISON: [facility], US, US PELVIC COMPLETE, 04/02/2023, 14:30. FINDINGS: Uterus: Uterus is retroverted and moderately enlarged in size at 11.9 x 12.0 x 21.0 cm. The myometrium is heterogeneous. An IUD is centrally position, relatively poorly visualized. The endometrium measures 24 mm combined thickness. Ovaries: The right ovary measures 4.9 x 4.2 x 2.7 cm. The right ovary contains a complex cyst, potentially a hemorrhagic ovarian cysts, measuring 2.3 x 2.0 x 1.8 cm with elevated peripheral vascularity The left ovary could not be located. Less than 12 follicles can be seen in the right ovary. No adnexal masses are seen. Other: No pathologic free abdominal or pelvic fluid. IMPRESSION: Enlarged uterus, heterogeneous myometrium, probable scattered uterine fibroids. Partially visualize centrally positioned IUD. The left ovary could not be located, the right ovary could be seen and contains a 2.3 cm complex cyst, potentially a a hemorrhagic ovarian cyst. Quality of visualization is significantly limited by patient body habitus. Follow-up pelvic ultrasound is recommended in 6-8 weeks to confirm resolution of the complex right ovarian cyst and to attempt repeat visualization of the left ovary. Dictated by: Evangelista Russell M.D. on 06/01/2023 at 16:24 Approved by: Evangelista Russell M.D. on 06/01/2023 at 16:30
[2023-06-01 15:05] LABS: Add Manual Diff / Slide Review NO; Basophils Absolute Auto 0 /uL (0-100); Basophils Percent Auto 0.6 % (0-2); Eosinophils Absolute Auto 100 /uL (0-450); Eosinophils Percent Auto 2.1 % (2-4); Hematocrit 34.8 % (36-46); Hemoglobin 11.2 g/dL (12.0-16.0); Lymphocytes Absolute Auto 1200 /uL (1100-4500); Lymphocytes Percent Auto 23.6 % (25-40); Mean Corpuscular HGB Conc 32.1 % (30-36); Mean Corpuscular Hemoglobin 27.8 PG (26-34); Mean Corpuscular Volume 86.6 fL (80-100); Monocytes Absolute Auto 400 /uL (0-900); Monocytes Percent Auto 8.3 % (3-14); Neutrophils Absolute Auto 3400 /uL (1500-7000); Neutrophils Percent Auto 65.4 % (50-75); Platelet Count 196 X10^3/uL (150-400); Red Blood Cell Count 4.02 X10^6/uL (4.0-5.2); Red Cell Distribution Width 14.5 % (11.6-14.8); White Blood Cell Count 5.2 X10^3/uL (4.5-11.0)
[2023-06-01 15:05] LABS: Urine Volume 10mL (spun)
[2023-06-01 15:23] LABS: Alanine Aminotransferase 25 IU/L (<35); Albumin 3.6 g/dL (3.5-5.0); Albumin Globulin Ratio 1.3 (1.0-2.8); Alkaline Phosphatase 60 U/L (38-126); Aspartate Aminotransferase 22 IU/L (14-36); Bilirubin Total 0.3 mg/dL (0.2-1.3); Blood Urea Nitrogen 8 mg/dL (7-17); Calcium 8.8 mg/dL (8.4-10.2); Carbon Dioxide 26 mmol/L (22-32); Chloride 106 mmol/L (98-107); Estimated Glomerular Filt Rate > 60 mL/min (>60); Globulin 2.8 g/dL (1.7-4.1); Glucose 83 mg/dL (70-100); HEMOLYSIS < 15 (0-50); Lipase 31 U/L (23-300); Potassium 3.8 mmol/L (3.4-5.1); Sodium 138 mmol/L (137-145); Total Protein 6.4 g/dL (6.3-8.2)
[2023-06-01 15:25] LABS: Bacteria Urine None Seen; Culture Indicated Urine Cult Not Indicated; Mucus Urine 1+ (Negative); RBC Urine 1-5/HPF (0-5/HPF); Squamous Epithelial Cell Urine 10-30 /HPF (0-5/HPF); WBC Urine 1-5/HPF (0-5/HPF)
[2023-06-01] MEDS: KETOROLAC 30 MG/ML VIAL IV (15:39)
--- NOTE | 2023-06-01 15:56 | ED_ITS ---
HPI - General Adult General Chief complaint: Vaginal Bleeding Stated complaint: uterine pain and bleeding Time Seen by Provider: 06/01/23 14:42 Source: patient Mode of arrival: Wheelchair Limitations: no limitations History of Present Illness HPI narrative: Patient is a 42-year-old female. A known history of large fibroids. There had been discussion with ob/gyn physician to have a hysterectomy. She does have an IUD in place. Several months ago she was seen seen here in the emergency department with large vaginal bleeding that required admission to the hospital and multiple blood products administered. She states that today woke up this morning with pain in her lower abdomen and vaginal bleeding. She decided to come in for evaluation because of her prior history. She is having lower abdominal cramping and pain. No fevers. No urinary symptoms. Related Data Home Medications Medication Instructions Recorded Confirmed acetaminophen 500 mg tablet 1,000 mg PO Q6H PRN Pain (Scale 07/18/22 04/27/23 (Tylenol Extra Strength) Score 1-3) ferrous sulfate 325 mg (65 mg 325 mg PO BID 03/20/23 04/27/23 iron) tablet (Feosol) Previous Rx's Medication Instructions Recorded ibuprofen 400 mg tablet 400 mg PO Q6-8H PRN pain #120 tabs 03/20/23 Allergies Allergy/AdvReac Type Severity Reaction Status Date / Time beeswax Allergy Intermediate Affects Verified 06/01/23 14:27 Breathing grapefruit Allergy Intermediate Rash Verified 06/01/23 14:27 honey Allergy Intermediate Affects Verified 06/01/23 14:27 Breathing pineapple Allergy Intermediate Rash Verified 06/01/23 14:27 Review of Systems Constitutional Constitutional: Reports system reviewed and no additional complaints, except as documented Gastrointestinal Gastrointestinal: Reports system reviewed and no additional complaints, except as documented Genitourinary Genitourinary: Reports system reviewed and no additional complaints, except as documented Integumentary/Breasts Skin/Breast: Reports system reviewed and no additional complaints, except as documented Neurologic Neurologic: Reports system reviewed and no additional complaints, except as documented Patient History Medical History Morbid obesity Vision disorder Acne Depression Anxiety Restless leg syndrome Migraines Headache Shoulder pain Foot pain Chronic back pain Ankle pain Chicken pox Blindness Painful menstrual periods Heavy menstrual period Epiploic appendagitis (~2017) Tetrahydrocannabinol (THC) use disorder, mild, abuse MADDI (generalized anxiety disorder) Vision loss Cataract Surgical History (Updated 04/19/23 @ 14:45 by Dolores Wells RN) Hx of tubal ligation Hx of dilation and curettage (03/18/23) Anesthesia History of section History of cholecystectomy (~2006) Family History Father Cataracts, bilateral Mother Glaucoma Grandfather Cancer Social History household members: friend(s) Smoking Status: Former smoker Tobacco: How many years used: 13 quit status: quit date established alcohol intake: current substance use type: marijuana Smoking Status: Former smoker alcohol intake frequency: holidays/special occasions only Substance Use Type: marijuana Exam Initial Vital Signs Initial Vital Signs: Vital Signs Temperature 97.8 F 06/01/23 14:23 Pulse Rate 74 06/01/23 14:23 Respiratory Rate 16 06/01/23 14:23 Blood Pressure 194/88 H 06/01/23 14:23 Pulse Oximetry 100 06/01/23 14:23 Oxygen Delivery Method Room Air 06/01/23 14:23 Const General: cooperative, comfortable and No ill appearing HENMT Head: normal to inspection and normocephalic Resp Effort & Inspection: normal respiratory effort Cardio Rate: regular rate Skin General: no rashes or lesions noted Neuro General: patient alert, patient awake and moves all extremities Extrem General: normal to inspection Course Orders Ordered: ED Orders 06/01/23 14:44 US pelvic complete Stat 06/01/23 14:45 Urine Microscopic Stat 06/01/23 14:48 Complete Blood Count AUTO DIFF Stat Comprehensive Metabolic Panel Stat Lipase Stat Type and Screen Stat 06/01/23 15:57 Hemoglobin and Hematocrit Stat Ondansetron HCl (Ondansetron 4 Mg Odt) 4 mg PO NOW PRN PRN Reason: Nausea And Vomiting Ondansetron HCl (Ondansetron 4 Mg/2 Ml Inj) 4 mg IV NOW PRN PRN Reason: Nausea And Vomiting Discontinued Medications Ketorolac Tromethamine (Ketorolac 30 Mg/Ml Vial) 30 mg IV NOW ONE Stop: 06/01/23 15:16 Last Admin: 06/01/23 15:39 Dose: 30 mg Documented By: AB Vital Signs Vital signs: Vital Signs - 8 hr 06/01/23 14:23 Temperature 97.8 F Pulse Rate 74 Respiratory Rate 16 Blood Pressure 194/88 H Pulse Oximetry 100 Oxygen Delivery Method Room Air Medical Decision Making Lab Data Lab results reviewed: Yes I reviewed the patient's lab results. 06/01/23 16:43 06/01/23 14:48 Labs: Lab Results 06/01/23 06/01/23 06/01/23 Range/Units 14:45 14:48 16:43 WBC 5.2 (4.5-11.0) X10^3/uL RBC 4.02 (4.0-5.2) X10^6/uL Hgb 11.2 L 10.7 L (12.0-16.0) g/dL Hct 34.8 L 33.2 L (36-46) % MCV 86.6 (80-100) fL MCH 27.8 (26-34) PG MCHC 32.1 (30-36) % RDW 14.5 (11.6-14.8) % Plt Count 196 (150-400) X10^3/uL Neut % (Auto) 65.4 (50-75) % Lymph % (Auto) 23.6 L (25-40) % [place] % (Auto) 8.3 (3-14) % Eos % (Auto) 2.1 (2-4) % Baso % (Auto) 0.6 (0-2) % Neut # (Auto) 3400 (7355-1180) /uL Lymph # (Auto) 1200 (5901-0976) /uL [place] # (Auto) 400 (0-900) /uL Eos # (Auto) 100 (0-450) /uL Baso # (Auto) 0 (0-100) /uL Sodium 138 (137-145) mmol/L Potassium 3.8 (3.4-5.1) mmol/L Chloride 106 (98-107) mmol/L Carbon Dioxide 26 (22-32) mmol/L BUN 8 (7-17) mg/dL Creatinine 0.50 L (0.52-1.04) mg/dL Estimated GFR > 60 (>60) mL/min BUN/Creatinine Ratio 16.0 (6-22) Glucose 83 (70-100) mg/dL Calcium 8.8 (8.4-10.2) mg/dL Total Bilirubin 0.3 (0.2-1.3) mg/dL AST 22 (14-36) IU/L ALT 25 (<35) IU/L Alkaline Phosphatase 60 (38-126) U/L Total Protein 6.4 (6.3-8.2) g/dL Albumin 3.6 (3.5-5.0) g/dL Globulin 2.8 (1.7-4.1) g/dL Albumin/Globulin Ratio 1.3 (1.0-2.8) Lipase 31 (23-300) U/L Urine RBC 1-5/hpf D (0-5/HPF) Urine WBC 1-5/hpf (0-5/HPF) Ur Squamous Epith Cells 10-30 /hpf H D (0-5/HPF) Urine Bacteria None seen (None) Urine Mucus 1+ H (Negative) Ur Culture Indicated? Cult not indicated Vol Urine Centrifuged 10ml (spun) Blood Type O Negative Antibody Screen Negative Point of Care Testing Test Results Negative Urine Dip Bedside Urine Glucose Negative Bedside Urine Bilirubin - Negative Bedside Urine Ketone - Negative Urine Specific [place] 1.030 Bedside Urine Occult Blood +++ Bedside Urine pH 6.0 Bedside Urine Protein +/- 15 Bedside Urine Urobilinogen - Negative Bedside Urine Nitrite - Negative Bedside Urine Leukocytes - Negative Esterase Point of care testing: Point of Care Testing Test Results Negative Urine Dip Bedside Urine Glucose Negative Bedside Urine Bilirubin - Negative Bedside Urine Ketone - Negative Urine Specific [place] 1.030 Bedside Urine Occult Blood +++ Bedside Urine pH 6.0 Bedside Urine Protein +/- 15 Bedside Urine Urobilinogen - Negative Bedside Urine Nitrite - Negative Bedside Urine Leukocytes - Negative Esterase Imaging Data US - abdomen: Radiologist's Impression: PROCEDURE: US PELVIC COMPLETE INDICATIONS: Known uterine fibroids, increased vaginal bleeding TECHNIQUE: Real-time scanning was performed of the pelvic organs, with image documentation. Additional endovaginal scanning was necessary due to incomplete visualization of the adnexal and endometrial structures by transabdominal scanning. COMPARISON: [facility], , US PELVIC COMPLETE, 04/02/2023, 14:30. FINDINGS: Uterus: Uterus is retroverted and moderately enlarged in size at 11.9 x 12.0 x 21.0 cm. The myometrium is heterogeneous. An IUD is centrally position, relatively poorly visualized. The endometrium measures 24 mm combined thickness. Ovaries: The right ovary measures 4.9 x 4.2 x 2.7 cm. The right ovary contains a complex cyst, potentially a hemorrhagic ovarian cysts, measuring 2.3 x 2.0 x 1.8 cm with elevated peripheral vascularity The left ovary could not be located. Less than 12 follicles can be seen in the right ovary. No adnexal masses are seen. Other: No pathologic free abdominal or pelvic fluid. IMPRESSION: Enlarged uterus, heterogeneous myometrium, probable scattered uterine fibroids. Partially visualize centrally positioned IUD. The left ovary could not be located, the right ovary could be seen and contains a 2.3 cm complex cyst, potentially a a hemorrhagic ovarian cyst. Quality of visualization is significantly limited by patient body habitus. Follow-up pelvic ultrasound is recommended in 6-8 weeks to confirm resolution of the complex right ovarian cyst and to attempt repeat visualization of the left ovary. [facility] Narrative Medical decision making narrative: Patient has a benign exam. Labs are unremarkable. Repeat H&H does not show a significant drop to the point where she would require blood transfusion. Patient is not tachycardic. Not hypotensive. She has a follow-up with ob/gyn physician already scheduled for June 13. Ultrasound today is expected given her known large fibroid. She does have an IUD in place. Will discharge patient home with instructions to keep her follow-up appointment. We discussed specific return precautions. She expressed understanding and agreement. Discharge Plan Departure Patient Disposition: Home Clinical Impression: Abnormal uterine bleeding, Uterine fibroid Instructions: DI for Dysmenorrhea Activity Restrictions/Additional Instructions: Recommend that you continue to take all your medications as directed and keep all of your scheduled medical appointments. If your symptoms worsen to the point that you have chest pain or lightheadedness or shortness of breath please return to the emergency department. If you are also bleeding through multiple pads an hour for multiple hours in a row please return to the emergency department as well. Prescriptions: No Action acetaminophen [Tylenol Extra Strength] 500 mg tablet 1,000 mg PO Q6H PRN (Reason: Pain (Scale Score 1-3)) ferrous sulfate [Feosol] 325 mg (65 mg iron) tablet 325 mg PO BID ibuprofen 400 mg tablet 400 mg PO Q6-8H PRN (Reason: pain) Qty: 120 5RF Rx Instructions: with food Referrals: Eduarda Eng DO [Primary Care Provider] - Stand Alone Forms: Patient Portal/API
[2023-06-01 16:50] LABS: Hematocrit 33.2 % (36-46); Hemoglobin 10.7 g/dL (12.0-16.0)
--- NOTE | 2023-06-01 17:43 | PC.NURSE ---
Dr Blevins submitting electronic RX for pain medication.
== END 2023-06-01 17:57 | disposition home or self-care (01) ==
PROVIDERS: Emergency Provider Emergency Medicine; PCP Family Medicine
DX: N93.9 Abnormal uterine and vaginal bleeding, unspecified (principal); D25.9 Leiomyoma of uterus, unspecified
CPT/HCPCS: 36415; 76830; 76856; 80053; 81003; 81015; 81025; 83690; 85014; 85018; 85025; 86850; 86900; 86901; 93976; 96374; 99284; J1885

== ENCOUNTER → 2023-06-13 13:48 | Outpatient (CLI) | payer OTHER, MEDICAID, SELFPAY ==
[2023-03-19 10:16] VITALS: BMI 44.8
[2023-06-13 14:10] LABS: Add Manual Diff / Slide Review NO; Basophils Absolute Auto 0 /uL (0-100); Basophils Percent Auto 0.6 % (0-2); Eosinophils Absolute Auto 100 /uL (0-450); Eosinophils Percent Auto 2.1 % (2-4); Hematocrit 35.1 % (36-46); Hemoglobin 11.6 g/dL (12.0-16.0); Lymphocytes Absolute Auto 1400 /uL (1100-4500); Lymphocytes Percent Auto 22.8 % (25-40); Mean Corpuscular HGB Conc 32.9 % (30-36); Mean Corpuscular Hemoglobin 27.9 PG (26-34); Mean Corpuscular Volume 84.8 fL (80-100); Monocytes Absolute Auto 400 /uL (0-900); Monocytes Percent Auto 6.9 % (3-14); Neutrophils Absolute Auto 4100 /uL (1500-7000); Neutrophils Percent Auto 67.6 % (50-75); Platelet Count 205 X10^3/uL (150-400); Red Blood Cell Count 4.14 X10^6/uL (4.0-5.2); Red Cell Distribution Width 14.6 % (11.6-14.8); White Blood Cell Count 6.1 X10^3/uL (4.5-11.0)
== END ==
LOC: LAB 13:49
PROVIDERS: PCP Family Medicine; Referring Provider Student in an Organized Health Care Education/Training Program; Visit Provider Student in an Organized Health Care Education/Training Program
DX: N93.9 Abnormal uterine and vaginal bleeding, unspecified (principal); D25.9 Leiomyoma of uterus, unspecified
CPT/HCPCS: 36415; 85025

== ENCOUNTER 2023-07-09 09:55 | Day surgery (SDC) | payer OTHER, MEDICAID, SELFPAY ==
[2023-03-19 10:16] VITALS: BMI 44.8
[2023-07-06 13:02] VITALS: BMI 44.1
[2023-07-09] VITALS (11 sets, daily range): BP systolic 128–156; BP diastolic 52–86; PULSE 67–89; RESP 13–18; TEMP 36.1–36.8; O2SAT 96–99; BMI 44.1
--- NOTE | 2023-07-09 | PATH_ITS ---
[facility] Accession Number: [id number] No. of containers..01 Tissue . 01 Material submitted: . fallopian tube - UTERUS / BILATERAL FALLOPIA N TUBES . 01 Diagnosis: UTERUS AND BILATERAL FALLOPIAN TUBES, SUPRACERVICAL HYSTERECTOMY, BILATERAL SALPINGECTOMY: 1. Endometrium with hormone-related effects and features of glandular and stromal breakdown. 2. Multiple benign leiomyomas. 3. Bilateral fallopian tubes with foci of endosalpingiosis and benign paratubal cyst. 4. No evidence of malignancy or atypical hyperplasia. [facility] 07/13/2023 1540 Local . 01 Electronically signed: . Luisa Figueroa MD, Pathologist NPI- [id number] . 01 Gross description: . The specimen is received in formalin, labeled with the patient's name, , and uterus and bilateral fallopian tubes, and consists of a fragmented uterus (1271 grams, 22.2 x 20.9 x 9.6 cm in aggregate), two detached, unoriented, fimbriated fallopian tubes (2.3 x 0.6 cm and 3.3 x 0.8 cm), with no cervix of additional adnexa. The serosa is coy and roughened with a cystic area measuring 2.5 x 1.7 cm and multiple hemorrhagic areas measuring up to 12.5 cm in greatest dimension. The intact portion of endometrial cavity measures 6.5 cm from cornu to cornu and 1.5 cm in length with brown lush endometrium that averages 0.2 cm thick. The myometrium is pink-coy and trabecular measuring up to 4.3 cm in maximum thickness with multiple well-circumscribed, detached whorled nodules measuring up to 10.1 cm in greatest dimension with no hemorrhage or necrosis identified. . Both tubes have violaceous, smooth serosa with no cystic structures identified, and sectioning reveals unremarkable stellate lumen. . Semi Truck Driver sections are submitted as follows: A1-A2: Endometrium. A3: Serosa with cystic area and hemorrhage. A4-A6: Nodules. A7: Longer fallopian tube to include one-half of bisected fimbriae and cross sections. A8: [place] fallopian tube to include one-half of bisected fimbriae and cross sections. ([id number]) Additional sections of endometrium are submitted in cassettes A9-A12. ([id number]) /MRV 07/12/2023 1834 Local . 01 Pathologist provided ICD-10: N93.9, D25.9 . 01 CPT . 691887 Specimen Comment: A courtesy copy of this report has been sent to [facility]ology Performed at: 01 [facility] [address] [place] [address] [address], [place], [place] [id number] MD Eusebio Delgado MD Phone: [phone]
[2023-07-09] MEDS: LACTATED RINGERS 1,000 ML 21 ML IV ×2 (11:38→13:25)
[2023-07-09] MEDS: ACETAMINOPHEN 325 MG TABLET 975 MG PO (11:38)
[2023-07-09] MEDS: GABAPENTIN 600 MG TABLET PO (11:40)
[2023-07-09] MEDS: CELECOXIB 200 MG CAPSULE PO (11:40)
[2023-07-09 11:55] LABS: Add Manual Diff / Slide Review NO; Basophils Absolute Auto 0 /uL (0-100); Basophils Percent Auto 0.5 % (0-2); Eosinophils Absolute Auto 100 /uL (0-450); Eosinophils Percent Auto 1.7 % (2-4); Hematocrit 35.5 % (36-46); Hemoglobin 11.6 g/dL (12.0-16.0); Lymphocytes Absolute Auto 1100 /uL (1100-4500); Lymphocytes Percent Auto 18.3 % (25-40); Mean Corpuscular HGB Conc 32.7 % (30-36); Mean Corpuscular Hemoglobin 26.8 PG (26-34); Mean Corpuscular Volume 81.9 fL (80-100); Monocytes Absolute Auto 400 /uL (0-900); Monocytes Percent Auto 7.2 % (3-14); Neutrophils Absolute Auto 4200 /uL (1500-7000); Neutrophils Percent Auto 72.3 % (50-75); Platelet Count 168 X10^3/uL (150-400); Red Blood Cell Count 4.33 X10^6/uL (4.0-5.2); Red Cell Distribution Width 14.3 % (11.6-14.8); White Blood Cell Count 5.8 X10^3/uL (4.5-11.0)
--- NOTE | 2023-07-09 12:03 | PM.PREOP ---
Pre-operative Note Interval Note History & Physical reviewed/Exam performed by Physician: Yes Changes to H&P: No H&P completed within 30 days and has changed as indicated here:: see H&P from 06/27/23
[2023-07-09] MEDS: CEFAZOLIN 2 GM/100 ML PREMIX 100 ML IV (12:51)
[2023-07-09] MEDS: VASOPRESSIN 20 UNIT/ML VIAL INJ (13:19)
--- NOTE | 2023-07-09 13:31 | SUR.OPER ---
Lithotomy on padded OR bed, head on pillow, arms secured on padded arm boards at <90 degrees abduction. Legs secured in padded yellow fins stirrups.
[2023-07-09] MEDS: ALBUMIN HUMAN 25 GM/100 ML VIAL IV (14:18)
[2023-07-09] MEDS: BUPIVACAINE LIPOSOME 266 MG/20 ML VIAL INJ ×2 (14:25→15:23)
[2023-07-09] MEDS: LACTATED RINGERS 1,000 ML 42 ML IV (15:23)
--- NOTE | 2023-07-09 15:59 | PM.OP.1 ---
Operative Date/Time/Diagnoses Date of procedure: 07/09/23 Time of procedure: 12:30 Pre-op diagnosis: 1. Abnormal uterine bleeding 2. Uterine leiomyomas Post-op diagnosis: same Procedure & Clinicians Procedure: Abdominal supracervical hysterectomy Bilateral salpingectomy Cystoscopy Same procedure as scheduled: Yes Indications: 42-year-old with AUB-L, previously underwent hysteroscopic myomectomy with Mirena IUD insertion in April 2023, however has continued to have vaginal bleeding and severe pelvic pain, and desires definitive management. Her pathology from that procedure was benign. In March 2023, she initially presented to the ER with heavy vaginal bleeding, where she underwent an emergent D&C for heavy vaginal bleeding and acute blood loss anemia. Her pathology from that procedure was benign. She has had regular monthly cycles for most of her life, which usually last 3 days. She reports heavy flow for those 3 days but then it tapers off. She stated that in Mar, she had a much heavier cycle with a lot of pain and cramping, which led to her ER visit. Surgeon: Radha Tamayo Compound Specialist: Naye Nobles Anesthesia Type: General Operative Notes Findings: 20-week sized multi-fibroid uterus with adhesions to the anterior abdominal wall. Normal appearing bilateral ovaries. Normal appearing bilateral fallopian tubes, previously transected during her prior tubal ligation. Normal appearing bladder with no evidence of injury or retained suture. Bilateral ureteral orifices patent with normal efflux of urine. Closure Type: primary Specimen(s): other (uterus and bilateral fallopian tubes) Applied: device(s) (LYNETTE 7 negative pressure wound system) Estimated Blood Loss (mL): 700 Blood products transfused: none Procedure in detail: The risks, benefits, indications and alternatives of the procedure were reviewed with the patient and informed consent was obtained. The pt was taken to the operating room where general anesthesia was obtained without difficulty. An exam under anesthesia was then performed, and given the size and width of the uterus, decision was made to use a vertical midline incision. Pt was then prepped and draped in the sterile fashion and a garg catheter was placed to drain the bladder. Sequential compression devices were placed bilaterally for VTE prophylaxis. She received 2g of Ancef for surgical prophylaxis. A vertical midline skin incision was then made and carried down to the underlying layer of fascia using the scalpel and Bovie cautery. The fascia was incised and extended along the length of the incision using the scalpel and Bovie cautery. Peritoneal cavity was then entered sharply. The O'Brian O'Waters abdominal retractor was then placed. The omentum was noted to be adhered to the anterior abdominal wall, and this was dissected off using Bovie cautery and the LigaSure device. The lower uterine segment was noted to be densely adhered to the anterior abdominal wall, and given difficulty with mobilization of the large uterus, decision was made to decompress the uterus. Dilute vasopressin was then injected into the uterine serosa, and a midline incision was made on the uterus with the Bovie cautery. Dissection was continued until entering the endometrial cavity, where a large 7 cm fibroid was able to be removed. During this process, some of the endometrial lining and myometrium was also removed. This allowed decompression of the uterus and mobilization of the uterus up through the incision. The left fimbriated end of the fallopian tube was grasped with a Saint Anthony clamp, cauterized, and ligated with the LigaSure device. The left utero-ovarian ligament was then identified, clamped, cut, and ligated with 0-vicryl. The left round ligament had previously been transected during dissection off the anterior wall. The same procedure was completed on the right side. Attention was then turned back to the adherent lower uterine segment, and through sharp and blunt dissection, it was able to be dissected off of the anterior abdominal wall. In a stepwise fashion, the broad ligament was doubly clamped, cut, and ligated with 0-vicryl to the level of the cervix. Decision was made to proceed with a supracervical hysterectomy. The uterine body was then amputated from the cervix with Bovie cautery. The uterus was then removed and all tissue was sent to pathology for review. The endocervical canal was then cauterized with Bovie cautery. Several 0 Vicryl [id number] sutures were placed along the cervix to assure hemostasis. The abdomen was then irrigated and cleared of clots and debris. A piece of Interceed was placed along the cervix to help prevent further adhesive disease. An area of the right ovarian pedicle was noted to be bleeding, and this was secured with a [id number] suture of 0 Vicryl. All packing and instruments were then removed from the abdomen. The cystoscope was then primed and advanced through the urethra and into the bladder. Both ureteral orifices were identified and bilateral efflux of urine was visualized. A survey of bladder showed no defects or visible suture. The cystoscope was then removed under direct visualization and the Garg catheter was replaced to drain the bladder. The fascia was reapproximated using 0-PDS in a running fashion. The subcutaneous tissue was reapproximated with 0-Vicryl in a double-layer, running suture. Approximately 40cc of Exparel were injected into the fascia, subcutaneous, and subcuticular layers of the incision. The skin was then repproximated with ron. A LYNETTE 7 negative pressure wound system was applied over the incision site. Sponge, lap and needle counts were correct x3. The patient was taken to the PACU in stable condition. Complications: none Post-operative Condition: stable Disposition: PACU Plan for aftercare: Admit to acute care for postop care.
[2023-07-09] MEDS: OXYCODONE IR 5 MG TABLET PO ×2 (16:49→20:10)
--- NOTE | 2023-07-09 16:52 | SUR.PHASEI ---
Adali CARBAJAL given report. Stat CBC sent to lab. RN aware that results are pending. Pt en route to .
[2023-07-09 17:21] LABS: Hematocrit 32.2 % (36-46); Hemoglobin 10.4 g/dL (12.0-16.0); Mean Corpuscular HGB Conc 32.2 % (30-36); Mean Corpuscular Hemoglobin 26.2 PG (26-34); Mean Corpuscular Volume 81.3 fL (80-100); Platelet Count 158 X10^3/uL (150-400); Red Blood Cell Count 3.96 X10^6/uL (4.0-5.2); Red Cell Distribution Width 14.3 % (11.6-14.8); White Blood Cell Count 12.7 X10^3/uL (4.5-11.0)
--- NOTE | 2023-07-09 18:01 | PC.NURSE ---
Patient arrived to Room 202 from PACU at 1705. She is alert and OX4. She is slightly groggy. VSS,afebrile on 2 L NC. Aramis dressing to midline incision on abdomen c/d/i. Friend Skip supportive at bedside.Oriented patient to room, call light in reach, SCD's, IVF LR at 100ml/hr, bed alarm, admission assessment completed. She has minimal urine output in Ni(EBL in surgery 700). Continuous monitoring.
[2023-07-09] MEDS: LACTATED RINGERS 1,000 ML 100 ML IV (18:07)
[2023-07-09] MEDS: ACETAMINOPHEN 325 MG TABLET 650 MG PO ×2 (18:10→23:18)
[2023-07-09] MEDS: DOCUSATE 100 MG CAPSULE 200 MG PO (20:10)
[2023-07-09] MEDS: KETOROLAC 30 MG/ML VIAL IV (22:11)
[2023-07-10] VITALS: BP 135/57; PULSE 75; RESP 16; TEMP 36.4; O2SAT 96
[2023-07-10] MEDS: LACTATED RINGERS 1,000 ML 100 ML IV (00:28)
[2023-07-10] MEDS: ACETAMINOPHEN 325 MG TABLET 650 MG PO ×2 (04:46→11:17)
[2023-07-10] MEDS: KETOROLAC 30 MG/ML VIAL IV ×2 (04:47→11:18)
[2023-07-10 06:00] VITALS: BP 157/64; PULSE 82; RESP 16; TEMP 36.2; O2SAT 98
[2023-07-10 07:51] LABS: Add Manual Diff / Slide Review NO; Basophils Absolute Auto 0 /uL (0-100); Basophils Percent Auto 0.3 % (0-2); Eosinophils Absolute Auto 0 /uL (0-450); Eosinophils Percent Auto 0.1 % (2-4); Hematocrit 26.9 % (36-46); Hemoglobin 8.8 g/dL (12.0-16.0); Lymphocytes Absolute Auto 800 /uL (1100-4500); Lymphocytes Percent Auto 9.3 % (25-40); Mean Corpuscular HGB Conc 32.8 % (30-36); Mean Corpuscular Volume 82.3 fL (80-100); Monocytes Absolute Auto 800 /uL (0-900); Monocytes Percent Auto 9.6 % (3-14); Neutrophils Absolute Auto 7000 /uL (1500-7000); Neutrophils Percent Auto 80.7 % (50-75); Platelet Count 147 X10^3/uL (150-400); Red Blood Cell Count 3.27 X10^6/uL (4.0-5.2); Red Cell Distribution Width 14.1 % (11.6-14.8); White Blood Cell Count 8.6 X10^3/uL (4.5-11.0)
[2023-07-10 08:26] VITALS: BP 122/45; PULSE 73; RESP 16; TEMP 36.5; O2SAT 96
[2023-07-10] MEDS: DOCUSATE 100 MG CAPSULE 200 MG PO (09:30)
--- NOTE | 2023-07-10 10:14 | CM.DANOTE ---
Initial DCP Assessment Visit Note Reviewed EMR and team rounds for pt's medical status and updates. Met with pt/friend at bedside to introduce self and role, pt found to be alert/oriented/expressing readiness for home d/c. Her friend Skip at bedside will plan to transport once medically cleared by the surgeon. Payor: [employer] Attending: Dr. Tamayo Pt is a 42 year-old F placed in [facility] bed following her planned total hysterectomy. Pt's surgery was completed yesterday, she is post-op day 1 and expressing feeling significantly better already. Pt resides in a hotel with her friend, no d/c needs are identified for DCP assistance at this time. She will plan to meet with Dr. Tamayo OP for wound f/u appt, no further OP resources needed. Discharge Planning/Care Management Pre-Anesthesia Assessment Start: 07/06/23 13:02 Freq: Status: Active Protocol: Document 07/06/23 13:02 [facility] (Rec: 07/06/23 13:10 [facility] [id number]) Pre-Anesthesia Assessment Patient Information Reviewed Via Chart Review Primary Care Provider Eduarda Eng Seen Specialist in Last 12 Months Yes Specialist Seen Emergency,Animal Laboratory Helper Primary Language Bulgarian Preferred Language Bulgarian Healthcare Project Manager Required No Height 158.75 cm Weight 111.13 kg Body Mass Index (BMI) 44.1 Hx Anesthesia Reactions No Hx Family Anesthesia Reaction No Hx Malignant Hyperthermia No Hx Blood Transfusions Yes Hx Blood Transfusion Reaction No Anesthesia Review Requested No Cna Hospice No alcohol intake current alcohol intake frequency holidays/special occasions only Smoking Status Former smoker Tobacco type e-cigarettes,smokeless tobacco ,cannabis/marijuana how long ago did patient quit smoking 2020 Substance Use Type marijuana Patient is completely paralyzed or No completely immobile Mental Status Oriented to own ability Hx Sleep Apnea No CPAP/BIPAP use not prescribed Currently Taking a Beta Brisa No Anti-Coagulant Therapy No Cardiac Testing No Hx Pacemaker/ICD No Pacemaker Rep Required? No Cardiac Clearance Received Not Applicable Urinary Catheter Present No Hx Urinary Self Catheterization No Diabetes No Patient No Lactating No Presence of External or Internal Medical No Devices Received a COVID vaccine? Yes Marital Status Single Lives With friend(s) Patient Discharge Plan Description Return Home Do You Have Any Spiritual Beliefs That No May Affect Your HC Choices? Do You Have Any Cultural Practices That No May Affect Your HC Choices? Emergency Contact Name Skip Willard Emergency Contact Advance Directives? No Power of Splitting Machine Operator Helper No
[2023-07-10 12:00] VITALS: BP 138/52; PULSE 65; RESP 16; TEMP 36.8; O2SAT 99
[2023-07-10] MEDS: OXYCODONE IR 5 MG TABLET PO (12:03)
--- NOTE | 2023-07-10 12:11 | P.DS_ITS ---
History of Present Illness History of Present Illness Date Patient Seen: 07/10/23 Time Patient Seen: 12:12 Chief complaint: Total Abdominal Hysterectomy Discharge Providers Provider Discharge Date: 07/10/23 Primary care physician: Eduarda Eng DO Discharge provider: Radha Tamayo DO Summary Hospital Course Discharge Diagnosis: 1. Abnormal uterine bleeding 2. Uterine leiomyomata 3. Pelvic pain 4. Anemia due to expected surgical blood loss Hospital Course: 42yo F with AUB-L, admitted for planned abdominal hysterectomy. She underwent an uncomplicated abdominal supracervical hysterectomy with bilateral salpingectomy, with an EBL of 700. On post-op day #1, she was ambulating, tolerating regular diet, passing flatus, and voiding spontaneously. Her pain was well controlled with oral pain medications. Thus on post-op day #1, she was deemed appropriate for discharge to home. Status at Discharge Cognitive/behavioral status at discharge: oriented Functional status at discharge: independent ambulation Overall status at discharge: patient is progressing back to baseline Time Spent with Patient Time spent: Greater than 30 minutes Exam Vital Signs (past 8 hours): - 07/10/23 06:00 07/10/23 08:26 Temperature 97.2 F L 97.7 F Pulse Rate 82 73 Respiratory Rate 16 16 Blood Pressure 157/64 H 122/45 L Pulse Oximetry 98 96 Oxygen Flow Rate 0 0 Oxygen Delivery Method Nasal Cannula Oxygen Flow Rate 0 Const General: comfortable and No acute distress Nutritional Appearance: obese Resp Effort & Inspection: normal respiratory effort and able to speak in complete sentences GI Other: Soft, appropriately tender, nondistended Skin Other: Vertical midline surgical incision covered with LYNETTE dressing with minimal strike through Neuro General: patient alert, patient awake and patient oriented x3 Extrem General: normal to inspection and no calf tenderness Psych Mood: congruent mood Affect: normal affect Objective Labs 07/10/23 07:42 Labs: Laboratory Results - last 24 hr 07/09/23 07/09/23 07/10/23 11:35 17:15 07:42 WBC 12.7 H D 8.6 RBC 3.96 L 3.27 L Hgb 10.4 L 8.8 L Hct 32.2 L 26.9 L MCV 81.3 82.3 MCH 26.2 27.0 MCHC 32.2 32.8 RDW 14.3 14.1 Plt Count 158 147 L Neut % (Auto) 80.7 H Lymph % (Auto) 9.3 L Evans % (Auto) 9.6 Eos % (Auto) 0.1 L Baso % (Auto) 0.3 Neut # (Auto) 7000 Lymph # (Auto) 800 L Evans # (Auto) 800 Eos # (Auto) 0 Baso # (Auto) 0 Blood Type O Negative Antibody Screen Negative [facility] Medical History (Updated 06/27/23 @ 16:46 by Radha Tamayo DO) Morbid obesity Vision disorder Acne Depression Anxiety Restless leg syndrome Migraines Headache Shoulder pain Foot pain Chronic back pain Ankle pain Chicken pox Blindness Painful menstrual periods Epiploic appendagitis (~2016) Tetrahydrocannabinol (THC) use disorder, mild, abuse MADDI (generalized anxiety disorder) Vision loss Cataract Surgical History (Updated 07/06/23 @ 13:10 by Dolores Wells RN) History of hysterectomy (04/27/23) Hx of tubal ligation Hx of dilation and curettage (03/18/23) Anesthesia History of section History of cholecystectomy (~2006) Family History Father Cataracts, bilateral Mother Glaucoma Grandfather Cancer Social History household members: friend(s) Smoking Status: Former smoker Tobacco: How many years used: 13 quit status: quit date established alcohol intake: current substance use type: marijuana Discharge Assessment & Plan Assessment and Plan Assessment: 42yo F s/p BYRON with BS, appropriate for discharge on postop day#1. Plan of Treatment: Discharge to home today. Follow up in clinic next week for dressing removal and staple removal. Discharge Plan Discharge Plan Patient Disposition: Home Provider Discharge Comment: Take ibuprofen 600 mg every 6 hours, and acetaminophen 650 mg every 6 hours for pain. Use oxycodone 5 mg every 4 hours as needed for severe pain. Take an oral iron supplement for your anemia. You have a negative pressure wound system in place called LYNETTE 7. Please see [email or web address].com for instructions for wear, activity, and showering. Discharge orders & Medications Discharge Orders: Discharge (Order); Ordered 07/10/23 Ordered By: Radha Tamayo Prescriptions: New oxycodone 5 mg tablet 5 mg PO Q6H PRN (Reason: pain) Qty: 10 0RF Continued acetaminophen [Tylenol Extra Strength] 500 mg tablet 1,000 mg PO Q6H PRN (Reason: Pain (Scale Score 1-3)) ferrous sulfate [Feosol] 325 mg (65 mg iron) tablet 325 mg PO BID ibuprofen 400 mg tablet 400 mg PO Q6-8H PRN (Reason: pain) Qty: 120 5RF Rx Instructions: with food Follow up/Referrals: Radha Tamayo DO [Physician] - (Follow-up on 07/15 at 9:30 a.m. for dressing/staple removal) Diet/Activity/Treatments Diet: Diet as Tolerated Activity: Ambulate as tolerated. Skin/Wound/Dressing Care Skin care: You may shower with the LYNETTE dressing on. See website above. Report to your healthcare provider any signs of infection, such as:: chills, fever, increased pain, unusual drainage and unusual redness Visit Report/Discharge Packet Instructions: DI for Hysterectomy, DI for Prescription Opioid Use Stand Alone Forms: Patient Portal/API Discharge Data Primary Care Provider: Eduarda Eng Attending Provider: Radha Tamayo Quality VTE Deep Vein Thrombosis/Pulmonary Embolism Present on Admission: No
--- NOTE | 2023-07-10 14:25 | PC.NURSE ---
Patient is A&OX4, VSS, afebrile on RA.She is voiding small amounts, and tolerating breakfast well. MD Tamayo assessing patient this a.m. encouraging patient to drink fluids and will plan on discharging her today after lunch. Aramis dressing to abdomen c/d/i with flashing green light. She reports pain is well controlled with scheduled tylenol and ibuprofen as well as prn oxycodone 5mg po. She ambulates in the vieyra with steady gait, and voiding output is increased through out the morning. MD Tamayo returned after lunch and cleared patient for discharge home with her friend Skip. She verbalizes medications, site care,activity restrictions as well as s/sx of infection. She is escorted via w/ch with EXTR[employer] PR[employer] SUPERVISOR at aprroximately 1330 for discharge home in private vehicle with her friend Skip at approximately 1330.
== END 2023-07-10 13:15 | disposition home or self-care (01) ==
LOC: OR 09:56 → AC 09:57
PROVIDERS: Student in an Organized Health Care Education/Training Program; PCP Family Medicine; Referring Provider Student in an Organized Health Care Education/Training Program; Visit Provider Student in an Organized Health Care Education/Training Program
PROC: 0UT90ZZ Resection of Uterus, Open Approach (ICD-10-PCS; CPT 58150; principal; 2023-07-09 12:45)
PROC: 0TJB8ZZ Inspection of Bladder, Via Natural or Artificial Opening Endoscopic (ICD-10-PCS; CPT 52000; 2023-07-09 12:45)
DX: N93.9 Abnormal uterine and vaginal bleeding, unspecified (principal); D25.9 Leiomyoma of uterus, unspecified; K66.0 Peritoneal adhesions (postprocedural) (postinfection); N94.89 Other specified conditions associated with female genital organs and menstrual cycle; N83.8 Other noninflammatory disorders of ovary, fallopian tube and broad ligament
CPT/HCPCS: 58180; 36415; 58301; 81025; 85025; 85027; 86850; 86900; 86901; C9290; J0330; J0690; J1100; J1170; J1885; J2405; J2704; J3010; P9041

== ENCOUNTER 2024-07-16 14:23 | Emergency (ER) | payer OTHER, SELFPAY ==
[2023-07-09 17:46] VITALS: BMI 44.1
[2024-07-16 14:42] VITALS: BP 171/84; PULSE 80; RESP 20; TEMP 37; O2SAT 100; BMI 43.4
--- NOTE | 2024-07-16 14:48 | DI.RAD.S_ITS ---
PROCEDURE: XR ANKLE RT MIN 3V INDICATIONS: ankle pain TECHNIQUE: 3 views of the ankle were acquired. COMPARISON: None. FINDINGS: Bones: No fractures or dislocations. Ankle mortise is normally aligned. Midfoot and hindfoot joint osteoarthritic changes are seen. Well-defined plantar and dorsal calcaneal enthesophytes are noted. No suspicious bony lesions. Soft tissues: Mild ankle soft tissue swelling. No tibiotalar joint effusion. Achilles tendon appears normal. IMPRESSION: No acute right ankle fracture or dislocation. Mild diffuse ankle soft tissue swelling. Midfoot and hindfoot joint osteoarthritis. Calcaneal enthesophytes. Dictated by: Elder Lopez M.D. on 07/16/2024 at 15:30 Approved by: Elder Lopez M.D. on 07/16/2024 at 15:33
--- NOTE | 2024-07-16 15:45 | ED.LOWEXIN ---
HPI - Extremity Injury (Lower) <Celia Wright PA-C - Last Filed: 07/16/24 16:46> General Chief Complaint: Extremity Injury, Lower Stated Complaint: ankle swelling and px Time Seen by Provider: 07/16/24 15:05 Source: patient Mode of arrival: Ambulatory History of Present Illness HPI Narrative: Ms. Shelton is a pleasant 43-year-old female with a past medical history of anxiety/depression, restless legs syndrome, chronic back foot and ankle pain who presents to emergency department for acute on chronic right ankle pain. States that she has had right ankle pain for about 9 years ever since she had a large pimple in the ankle. States that today she noticed a red paul on the internal right ankle and worsening pain which prompted her ED arrival. She is ambulating independently without assistance. No fevers chills or shortness of breath. No trauma to the ankle. Related Data Home Medications Medication Instructions Recorded Confirmed acetaminophen 500 mg tablet 1,000 mg PO Q6H PRN Pain (Scale 07/18/22 08/23/23 (Tylenol Extra Strength) Score 1-3) ferrous sulfate 325 mg (65 mg 325 mg PO BID 03/20/23 08/23/23 iron) tablet (Feosol) Previous Rx's Medication Instructions Recorded ibuprofen 400 mg tablet 400 mg PO Q6-8H PRN pain #120 tabs 03/20/23 oxycodone 5 mg tablet 5 mg PO Q6H PRN pain #10 tabs 07/10/23 cephalexin 500 mg tablet 500 mg PO QID 7 days #28 tabs 07/16/24 naproxen 500 mg tablet 500 mg PO BID PRN pain #30 tabs 07/16/24 Allergies Allergy/AdvReac Type Severity Reaction Status Date / Time beeswax Allergy Intermediate Affects Verified 08/23/23 10:04 Breathing grapefruit Allergy Intermediate Rash Verified 08/23/23 10:04 honey Allergy Intermediate Affects Verified 08/23/23 10:04 Breathing pineapple Allergy Intermediate Rash Verified 08/23/23 10:04 Review of Systems <Celia Wright PA-C - Last Filed: 07/16/24 16:46> Review of Systems ROS Unobtainable: All systems reviewed & are unremarkable except as noted in HPI and below Patient History <Celia Wright PA-C - Last Filed: 07/16/24 16:46> Medical History Morbid obesity Vision disorder Acne Depression Anxiety Restless leg syndrome Migraines Headache Shoulder pain Foot pain Chronic back pain Ankle pain Chicken pox Blindness Epiploic appendagitis (~2016) Tetrahydrocannabinol (THC) use disorder, mild, abuse MADDI (generalized anxiety disorder) Vision loss Cataract Surgical History History of hysterectomy, supracervical abdominal (subtotal) (~07/2023) Hx of tubal ligation Hx of dilation and curettage (03/18/23) Anesthesia History of section History of cholecystectomy (~2006) Family History Father Cataracts, bilateral Mother Glaucoma Grandfather Cancer Social History household members: friend(s) Smoking Status: Former smoker Tobacco: How many years used: 13 quit status: quit date established alcohol intake: current substance use type: marijuana Smoking Status: Former smoker alcohol intake frequency: holidays/special occasions only Exam <Celia Wright PA-C - Last Filed: 07/16/24 16:46> Narrative Exam Narrative: GENERAL: 43 year old patient appears stated age. Obese patient, in no acute distress. HEAD: Atraumatic. Normocephalic. NECK: Trachea midline. Cervical ROM intact. CARDIOVASCULAR: Regular rate RESPIRATORY: ?Nonlabored respirations. ?Speaking in clear, full sentences. EXTREMITIES: Tenderness to palpation of medial aspect of right ankle with a proximally 4 cm of erythema just proximal to the medial malleolus. No tenderness to palpation of bilateral feet and there were strong DP and PT pulses bilaterally. No calf tenderness. No streaking erythema. No abscess. NEURO: AOx3. ?Clear speech. ?Moves all 4 extremities appropriately. Initial Vital Signs Initial Vital Signs: Vital Signs Temperature 98.6 F 07/16/24 14:42 Pulse Rate 80 07/16/24 14:42 Respiratory Rate 20 07/16/24 14:42 Blood Pressure 171/84 H 07/16/24 14:42 Pulse Oximetry 100 07/16/24 14:42 Oxygen Delivery Method Room Air 07/16/24 14:42 <Suzanne Rm MD - Last Filed: 07/16/24 18:59> Initial Vital Signs Initial Vital Signs: Vital Signs Temperature 98.6 F 07/16/24 14:42 Pulse Rate 80 07/16/24 14:42 Respiratory Rate 20 07/16/24 14:42 Blood Pressure 171/84 H 07/16/24 14:42 Pulse Oximetry 100 07/16/24 14:42 Oxygen Delivery Method Room Air 07/16/24 14:42 Course <Celia Wright PA-C - Last Filed: 07/16/24 16:46> Orders Ordered: ED Orders 07/16/24 14:48 XR ankle RT min 3V Stat Discontinued Medications Hydrocodone Bitart/Acetaminophen (Hydrocodone/Acet 5/325 Tablet) 1 tab PO NOW ONE Stop: 07/16/24 15:54 Last Admin: 07/16/24 16:33 Dose: 1 tab Documented By: LINA Ketorolac Tromethamine (Ketorolac 30 Mg/Ml Vial) 30 mg IM NOW ONE Stop: 07/16/24 15:54 Last Admin: 07/16/24 16:33 Dose: 30 mg Documented By: LINA Vital Signs Vital signs: Vital Signs - 8 hr 07/16/24 14:42 07/16/24 17:01 Temperature 98.6 F 97.7 F Pulse Rate 80 69 Respiratory Rate 20 16 Blood Pressure 171/84 H 187/86 H Pulse Oximetry 100 95 Oxygen Delivery Method Room Air Room Air <Suzanne Rm MD - Last Filed: 07/16/24 18:59> Orders Ordered: ED Orders 07/16/24 14:48 XR ankle RT min 3V Stat Discontinued Medications Hydrocodone Bitart/Acetaminophen (Hydrocodone/Acet 5/325 Tablet) 1 tab PO NOW ONE Stop: 07/16/24 15:54 Last Admin: 07/16/24 16:33 Dose: 1 tab Documented By: LINA Ketorolac Tromethamine (Ketorolac 30 Mg/Ml Vial) 30 mg IM NOW ONE Stop: 07/16/24 15:54 Last Admin: 07/16/24 16:33 Dose: 30 mg Documented By: LINA Vital Signs Vital signs: Vital Signs - 8 hr 07/16/24 14:42 07/16/24 17:01 Temperature 98.6 F 97.7 F Pulse Rate 80 69 Respiratory Rate 20 16 Blood Pressure 171/84 H 187/86 H Pulse Oximetry 100 95 Oxygen Delivery Method Room Air Room Air MDM - Extremity Injury (Lower) <Celia Wright PA-C - Last Filed: 07/16/24 16:46> Medical Records Attestation: I reviewed the patient's medical records. Medical records narrative: Abnormal uterine bleeding 06/01/2023. Imaging Data Right Ankle X-Ray: Radiologist's Impression: PROCEDURE: XR ANKLE RT MIN 3V INDICATIONS: ankle pain TECHNIQUE: 3 views of the ankle were acquired. COMPARISON: None. FINDINGS: Bones: No fractures or dislocations. Ankle mortise is normally aligned. Midfoot and hindfoot joint osteoarthritic changes are seen. Well-defined plantar and dorsal calcaneal enthesophytes are noted. No suspicious bony lesions. Soft tissues: Mild ankle soft tissue swelling. No tibiotalar joint effusion. Achilles tendon appears normal. IMPRESSION: No acute right ankle fracture or dislocation. Mild diffuse ankle soft tissue swelling. Midfoot and hindfoot joint osteoarthritis. Calcaneal enthesophytes. [facility] Narrative Medical decision making narrative: 43-year-old female with a past medical history of anxiety/depression, restless legs syndrome, chronic back foot and ankle pain who presents to emergency department for acute on chronic right ankle pain. Differential diagnosis includes but is not limited to arthritis, gout, cellulitis, sprain, strain, etc. On exam the patient is in no acute distress, nontoxic appearing, afebrile and not tachycardic. She is mild erythema on the medial aspect of the right ankle with tenderness. X-ray obtained in triage which reveals no acute right ankle fracture or dislocation. There is mild diffuse ankle soft tissue swelling. Midfoot and hindfoot joint osteoarthritis. Calcaneal enthesophytes. Suspect start of early right lower extremity cellulitis in addition with chronic arthritis of ankle. We will treat with Keflex 4 times a day x7 days in addition to naproxen. We will give dose of Toradol and hydrocodone in the ED, she is with her friend Skip who contributes to the history and can drive her home. Recommended rice therapy of the leg as well, discussed strict ED return precautions, and prompt follow up with PCP. She verbalized understanding of all information is agreeable to plan. Antibiotics sent to pharmacy of choice. She is stable for discharge home. Discharge Plan Departure Patient Disposition: Home Clinical Impression: Cellulitis of right lower extremity, Arthritis of ankle, right Instructions: DI for Cellulitis -- Adult Activity Restrictions/Additional Instructions: Thank you for coming to the emergency department today. You were evaluated for right ankle pain swelling and redness. X-ray reveals arthritis of the ankle. Your physical exam is concerning for cellulitis which is a superficial skin and soft tissue infection. I prescribed antibiotics, it is extremely important they complete the full course of antibiotics. You may also use the prescribed naproxen pain medication in addition to [id number] Tylenol. Please rest, elevate the leg, wear compressive socks, it follow up with the primary care doctor. Return to emergency department if you develop any new or worsening symptoms, fevers or other concerns. Please use RICE therapy for your pain in addition to naproxen/acetaminophen. Rest the painful area. Ice the area of pain/swelling for at least 15 minutes, 4x a day. Compress the area of swelling using a brace, wrap, or splint if applied. Elevate the painful or swollen extremity by supporting it above the level of the heart with pillows when sitting or laying. Please follow up with your primary care doctor within the next 2-3 days for ER follow-up. (If you do not have a PCP you can call [phone]. ?to schedule an appointment with an [facility] Primary Care Provider) IF YOU DEVELOP ANY NEW OR WORSENING SYMPTOMS, RETURN TO THE ER! Please read the attached instructions, they highlight more specific treatments and interventions for you at home. Thank you for letting me participate in your care, Celia Wright PA-C Prescriptions: New cephalexin 500 mg tablet 500 mg PO QID 7 Days Qty: 28 0RF naproxen 500 mg tablet 500 mg PO BID PRN (Reason: pain) Qty: 30 0RF Rx Instructions: Take with food/meal. No Action acetaminophen [Tylenol Extra Strength] 500 mg tablet 1,000 mg PO Q6H PRN (Reason: Pain (Scale Score 1-3)) ferrous sulfate [Feosol] 325 mg (65 mg iron) tablet 325 mg PO BID ibuprofen 400 mg tablet 400 mg PO Q6-8H PRN (Reason: pain) Qty: 120 5RF Rx Instructions: with food oxycodone 5 mg tablet 5 mg PO Q6H PRN (Reason: pain) Qty: 10 0RF Referrals: Eduarda Eng DO [Primary Care Provider] - Stand Alone Forms: Patient Portal/API/Survey ED Sign-out <Suzanne Rm MD - Last Filed: 07/16/24 18:59> Cosign ED Attending Td Attestation: I was immediately available in the department for consultation throughout this patient's visit. Suzanne Rm MD
[2024-07-16] MEDS: HYDROCODONE/ACET 5/325 TABLET 1 TAB PO (16:33)
[2024-07-16] MEDS: KETOROLAC 30 MG/ML VIAL IM (16:33)
--- NOTE | 2024-07-16 16:34 | PC.NURSE ---
pt reports she had a hysterectomy
--- NOTE | 2024-07-16 17:00 | PC.NURSE ---
Right foot/ankle pain. No known injury. States she has had increased pain and redness in right foot. Pt able to walk independently. GCS 15. Respirations regular and unlabored. denies fevers
[2024-07-16 17:01] VITALS: BP 187/86; PULSE 69; RESP 16; TEMP 36.5; O2SAT 95
== END 2024-07-16 17:01 | disposition home or self-care (01) ==
PROVIDERS: Emergency Provider Physician Assistant; PCP Family Medicine
DX: L03.115 Cellulitis of right lower limb (principal); M19.071 Primary osteoarthritis, right ankle and foot
CPT/HCPCS: 73610; 96372; 99283; J1885